=== PATIENT | male | born 1950 | race Caucasian/White ===

== ENCOUNTER 2022-03-11 01:18 | Outpatient (CLI) | payer MEDICARE, SELFPAY ==
[2022-03-11 12:25] LABS: HCT 45.1 % (40.0-50.0); HGB 14.7 g/dL (13.5-17.5); MCH 29.3 pg (27.0-33.0); MCHC 32.6 % (32.0-36.0); MCV 90 fL (80-95); MPV 10.3 fL (8.0-11.0); Platelet Count 275 10^3/uL (130-400); RBC 5.02 10^6/uL (4.36-5.78); RDW-SD 42.4 fL; WBC 9.14 10^3/uL (4.4-10.8)
[2022-03-11 12:44] LABS: CREATININE 1.1 mg/dL (0.70-1.30); Calculated LDL 132 mg/dL (<100); Cholesterol 229 mg/dL (<200); Estimated GFR 71.32 (mL/min/1.73m2); HDL Cholesterol 38 mg/dL (40-60); Potassium 3.5 mmol/L (3.5-5.1); TSH (W/Ref FT4) 4.66 uIU/mL (0.36-3.74); Triglyceride 297 mg/dL (<150)
[2022-03-11 13:04] LABS: FREE T4 0.93 ng/dL (0.76-1.46)
[2022-03-11 22:35] LABS: PSA, Screening 2.8 ng/mL (<=6.5)
[2022-03-14 12:56] LABS: Lyme Ab w Rflx to Lyme Confirm Equivocal (Negative)
[2022-03-14 14:39] LABS: Lyme IgG Ab Negative (Negative); Lyme IgM Ab Negative (Negative)
[2022-03-14 23:31] LABS: Anaplasma phagocytophilum Negative (Negative); B. miyamotoi PCR Negative (Negative); Babesia divergens/MO-1 Negative (Negative); Babesia duncani Negative (Negative); Babesia microti Negative (Negative); Ehrlichia chaffeensis Negative (Negative); Ehrlichia ewingii/canis Negative (Negative); Ehrlichia muris eauclairensis Negative (Negative)
== END 2022-03-11 01:19 | disposition home or self-care (01) ==
LOC: LOS 01:18
PROVIDERS: PCP Nurse Practitioner Family; Visit Provider Nurse Practitioner Family
DX: I10 Essential (primary) hypertension (principal); R53.83 Other fatigue; I63.9 Cerebral infarction, unspecified; R35.0 Frequency of micturition
CPT/HCPCS: 36415; 80061; 84153; 85027; 86617; 87798; 82565; 84132; 84439; 84443; 86618

== ENCOUNTER 2022-06-21 23:17 | Inpatient (IN) | payer MEDICARE, SELFPAY ==
--- NOTE | 2022-06-21 23:15 | RT.EKG_ITS ---
APPROVED REPORT Exam: Resting ECG Reason for Exam: weakness Patient Location: E HR:98 bpm ECG Measurements Heart Rate 98 AXIS PA 166 P 48 QRSd 141 QRS -14 QT 378 T -27 QTc 483 Conclusion Sinus rhythm...normal P axis, V-rate 60- 99 Right bundle branch block...QRSd>120, terminal axis(90,270)
--- NOTE | 2022-06-21 23:15 | DI.CT_ITS ---
Exam(s) CT BRAIN NECK CTA EXAM: CT BRAIN NECK CTA CLINICAL HISTORY: ?cva, right sided weakness. TECHNIQUE: Imaging Protocol: Axial CT angiography was performed with multi-slice acquisition and mu lti-planar and/or 3D reconstructions. CONTRAST MATERIAL: Intravenous: Omnipaque 350 contrast volume:85 mL COMPARISON: CT HEAD WITHOUT CONTRAST from 09/03/2009 CT HEAD WITHOUT CONTRAST from 09/05/2009 FINDINGS: CT Head W/O and W: Ventricles and Extra axial spaces: Normal in size and morphology for the patient's age. Hemorrhage: None. Cerebral parenchyma: There is no evidence of an acute territorial infarct. There are areas of decrea sed attenuation in the white matter consistent with small vessel ischemic disease. There are lacunar infarct seen in the right basal ganglia. Midline shift: None. Brainstem/Cerebellum: Normal. Calvarium: Normal. Visualized Paranasal sinuses/Mastoids: Clear. Soft Tissues: Unremarkable. Enhancement: Unremarkable. CTA Neck W: Common Carotid: Right: No dissection, occlusion or significant stenosis. Mild atherosclerosis. Left: No dissection, occlusion or significant stenosis. External Carotid: Right: No occlusion or significant stenosis. Left: No occlusion or significant stenosis. Internal Carotid: Right: No dissection, occlusion or significant stenosis. Atherosclerosis at the origin. Left: No dissection or occlusion. There is approximately 50 percent stenosis at the origin of the l eft internal carotid artery secondary to calcified and noncalcified plaque. Atherosclerosis at the o rigin. Vertebral Artery: Right: No dissection, occlusion or significant stenosis. Left: No dissection, occlusion or significant stenosis. Lung Apices: Normal. Bones: Within normal limits for the patient's age. Soft Tissues: Normal. Thyroid gland: Unremarkable. CTA Brain W: Internal Carotid Arteries: Atherosclerosis bilaterally. Mild narrowing of the left internal carotid artery. No aneurysm, occlusion or significant stenosis. Anterior Cerebral Arteries: Right: No aneurysm, occlusion or significant stenosis. Left: No aneurysm, occlusion or significant stenosis. Middle Cerebral Arteries: Right: No aneurysm, occlusion or significant stenosis. Left: No aneurysm, occlusion or significant stenosis. Posterior Cerebral Arteries: Right: No aneurysm, occlusion or significant stenosis. There is a origin of the right posterio r cerebral artery. Left: No aneurysm, occlusion or significant stenosis. Vertebral Arteries: Right: No aneurysm or occlusion. Dmio-mt-olksskhy stenosis of the right distal vertebral artery by calcified and noncalcified plaque. Left: The left vertebral artery in at the PICA. Basilar Artery: No aneurysm, occlusion or significant stenosis. IMPRESSION: 1. No significant large vessel stenosis or occlusion on the CT angiography of the head. 2. No acute intracranial process. 3. Approximately 50 percent stenosis at the origin of the left internal carotid artery due to plaque. RADIATION DOSE DELIVERED: 2,301.86mGy.cm Total DLP DATA REPOSITORY: All CT scans at this facility are submitted to the National Radiology Data Registry (NRDR) Dose Index Registry (DIR) with the [employer] (ACR). RADIATION OPTIMIZATION: All CT scans at this facility use at least one of these dose optimization te chniques: automated exposure control; mA and/or kV adjustment per patient size (includes targeted exa ms where dose is matched to clinical indication); or iterative reconstruction.
[2022-06-21 23:22] VITALS: PULSE 108; RESP 19; O2SAT 96
[2022-06-21 23:23] VITALS: BP 198/111; PULSE 105; PULSE 107; RESP 14; RESP 18; TEMP 36.4; O2SAT 93; O2SAT 94
--- NOTE | 2022-06-21 23:28 | ED.GENADUL_ITS ---
Discharge Plan Disposition Patient Disposition: Admit to [facility] Discharge Details Clinical Impression: Right sided weakness Primary Care Provider: Jonathan Gonsalez ED Provider: Abraham Khan Home Meds and New Rx's Prescriptions: No Action sildenafil [Viagra] 50 mg tablet 50 mg PO DAILY PRN (Reason: sexual activity) Qty: 2 5RF Rx Instructions: administer 30 minutes to 4 hours before activity amlodipine 5 mg tablet 5 mg PO DAILY Qty: 90 4RF simvastatin 10 mg tablet 10 mg PO QHS Qty: 90 3RF Medical Decision Making 71 yo male with hx of htn, per chart review cva in 2009 but significant other and himself deny chronic deficits, comes in with his significant other with right sided weakness and slurred speech. He has had issues with fatigue and daytime sleepiness chronically per his significant other (not , been together over 20 years). She last saw him yesterday in his usual state of health. She arrived and found him at 7pm and he was having right leg weakness and arm weakness, and was having difficulty walking so she brought him here for an eval. Pt arrives with noticeable right lower face droop, can raise his eyebrow, right arm and leg weakness with decrease in sensation, nih of 9 on initial exam (see neuro exam for nih details). He is caox4 and states he woke up this morning with the right leg and arm feeling weak. He is noted to be hypertensive to 190 systolic on arrival. His exam and history are consistent with cva but has had symptoms for over 4.5 hours so not a lytic candidate, will proceed with ct/cta brain/neck, ekg/troponin, cbc, cmp. imaging without acute significant abnormalities, has 50% stenosis of left internal carotid artery and microvascular changes on brain ct. Pt stable, speech slightly improved still with weakness on the right side. Will discuss with hospitalist for further obs and mri for likely cva. Aspirin ordered Differential Diagnosis Differential Diagnosis: cva, electrolyte abnormality, anemia Imaging Data Radiologic Study: Attestation: I personally reviewed and interpreted this imaging study as follows: Imaging: CT Scan Radiologist's impression: PROCEDURE INFORMATION: Exam: CTA Head With Contrast, Arteriography Exam date and time: 06/21/2022 11:37 PM Age: 71 years old Clinical indication: Stroke-like symptoms; Speech disturbance; Other: Righy weakness; Additional info: ? CVA, right sided weakness TECHNIQUE: Imaging protocol: Computed tomographic angiography of the head with contrast. Exam focused on the arteries. 3D rendering (Not supervised by radiologist): MIP and/or 3D reconstructed images were created by the technologist. Radiation optimization: All CT scans at this facility use at least one of these dose optimization techniques: automated exposure control; mA and/or kV adjustment per patient size (includes targeted exams where dose is matched to clinical indication); or iterative reconstruction. Contrast material: OMNIPAQUE 350; Contrast volume: 85 ml; Contrast route: INTRAVENOUS (IV); COMPARISON: MRI - BRAIN W/WO CONTRAST 11/30/2016 3:22 PM FINDINGS: ANTERIOR CIRCULATION: Right internal carotid artery: Intracranial segment is patent with no significant stenosis. No aneurysm. Right middle cerebral artery: No occlusion or significant stenosis. No aneurysm. Right anterior cerebral artery: No occlusion or significant stenosis. No aneurysm. Left internal carotid artery: Intracranial segment is patent with no significant stenosis. No aneurysm. Left middle cerebral artery: No occlusion or significant stenosis. No aneurysm.Left anterior cerebral artery: No occlusion or significant stenosis. No aneurysm. POSTERIOR CIRCULATION: Right vertebral artery: Mild to moderate stenosis of right vertebral artery by calcified/noncalcified plaque. Left vertebral artery: Left vertebral artery ends in PICA. Basilar artery: No occlusion or significant stenosis. No aneurysm. Right posterior cerebral artery: origin of the right posterior cerebral artery. Left posterior cerebral artery: No occlusion or significant stenosis. No aneurysm. Brain: There are moderate periventricular and subcortical lucencies consistent with chronic microvascular ischemic changes. Cerebral ventricles: No ventriculomegaly. Bones/joints: Unremarkable. No acute fracture. Soft tissues: Unremarkable. IMPRESSION: No significant stenosis or occlusion of intracranial arteries. PROCEDURE INFORMATION: Exam: CTA Neck With Contrast Exam date and time: 06/21/2022 11:37 PM Age: 71 years old Clinical indication: Stroke-like symptoms; Speech disturbance; Other: Righy weakness; Additional info: ? CVA, right sided weakness TECHNIQUE: Imaging protocol: Compu ousmane tomographic angiography of the neck with contrast. 3D rendering (Not supervised by radiologist): MIP and/or 3D reconstructed images were created by the technologist. Radiation optimization: All CT scans at this facility use at least one of these dose optimization techniques: automated exposure control; mA and/or kV adjustment per patient size (includes targeted exams where dose is matched to clinical indication); or iterative reconstruction. Contrast material: OMNIPAQUE 350; Contrast volume: 85 ml; Contrast route: INTRAVENOUS (IV); COMPARISON: MRI - BRAIN W/WO CONTRAST 11/30/2016 3:22 PM FINDINGS: Right common carotid artery: No stenosis. No dissection or occlusion. Right internal carotid artery: No stenosis of the extracranial segment. No dissection or occlusion. Right external carotid artery: No occlusion or stenosis of the origin.Left common carotid artery: No stenosis. No dissection or occlusion. Left internal carotid artery: There is approximately 50% stenosis of left internal carotid artery with calcified/noncalcified plaque. Left external carotid artery: No occlusion or stenosis of the origin. Right vertebral artery: No stenosis. No dissection or occlusion. Left vertebral artery: No stenosis. No dissection or occlusion. Soft tissues: Normal. No significant soft tissue swelling. Bones/joints: No acute fracture. IMPRESSION: 1. Right: No significant stenosis or occlusion of right internal carotid artery and vertebral artery. 2. Left: Approximately 50% stenosis of left internal carotid artery with calcified/noncalcified plaque. Vertebral artery is patent. REFERENCES: NASCET CRITERIA. The degree of stenosis in the cervical segment of the internal carotid artery is based on NASCET criteria. Normal is no stenosis. Mild is less than 50% stenosis. Moderate is 50- 69% stenosis. Severe is 70% to 99% stenosis. Total occlusion is no detectable patent lumen Radiologic Study #2: Attestation: I personally reviewed and interpreted this imaging study as follows: Imaging: X-Ray Radiologist's impression: no acute findings cxr Lab Data Lab results reviewed: Yes I reviewed the patient's lab results. ECG Data Attestation: I personally reviewed and interpreted this ECG (s) as follows: Prior ECG tracings: not available for review Interpretation: sinus rhythm, rate of 98, pr 166, rbbb, no stemi 2nd ekg sinus tachycardia, rate 103, rbbb, no stemi HPI General Mode of arrival: wheelchair . Date/Time Provider Initiated Documentation: 06/21/22 23:17 . Information obtained by: patient and family . History of Present Illness 71 year old M presents to the emergency department with the chief complaint of right sided weakness, described as moderate, Patient started experiencing this hour(s) (14) and it has been constant. No relieving factors improve symptom(s), No exacerbating factors reported . Patient notes denies chest pain and fever/chills. Patient did receive the following treatments prior to arrival, none Related Data Home Medications Medication Instructions Recorded Confirmed sildenafil 50 mg tablet (Viagra) 50 mg PO DAILY PRN sexual activity 12/07/20 06/21/22 #2 tabs amlodipine 5 mg tablet 5 mg PO DAILY #90 tab-caps 02/24/22 06/21/22 simvastatin 10 mg tablet 10 mg PO QHS #90 tabs 04/14/22 06/21/22 Previous Rx's Medication Instructions Recorded sildenafil 50 mg tablet (Viagra) 50 mg PO DAILY PRN sexual activity 12/07/20 #2 tabs amlodipine 5 mg tablet 5 mg PO DAILY #90 tab-caps 02/24/22 simvastatin 10 mg tablet 10 mg PO QHS #90 tabs 04/14/22 Allergies Allergy/AdvReac Type Severity Reaction Status Date / Time No Known Allergies Allergy Verified 06/21/22 23:32 Review of Systems All systems reviewed & are unremarkable except as noted in HPI and below Constitutional Constitutional: Denies chills and Denies fever(s) Cardiovascular Cardiovascular: Denies chest pain and Denies dyspnea Respiratory Respiratory: Denies cough and Denies dyspnea Gastrointestinal Gastrointestinal: Denies abdominal pain, Denies nausea and Denies vomiting Genitourinary Genitourinary: Denies dysuria Musculoskeletal Musculoskeletal: Denies joint swelling Integumentary/Breasts Skin/Breast: Denies rash PFSH All Active Problems (Updated 06/22/22 @ 00:37 by Abraham Khan MD) Right sided weakness (Acute) Elevated TSH (Acute) Daytime sleepiness (Acute) Low back pain (Chronic) Diarrhea (Acute) Urinary frequency (Acute) Fatigue (Chronic) Hypertension (Chronic) Numbness of left foot (Acute) Medical History (Updated 06/22/22 @ 00:37 by Abraham Khan MD) CVA (cerebral vascular accident) 2009 Social History (Updated 02/25/22 @ 15:06 by Trudi Villasenor) Smoking/Tobacco Use Status: Former Tobacco Use tobacco type: cigarettes Quit Date: 02/20/79 Second Hand Exposure: No Smoking risk assessment performed?: Yes Alcohol Intake: never Drug use: Never Substance use type: does not use Household members: significant other Housing: house Communication Needs: Hard of Hearing Do you need help understanding health information?: Often Pets and animals: Yes Pets and animals: cat(s) Sexually active: No Do you think of yourself as: straight/heterosexual Current gender identity: male What is your relationship status?: living with partner How often do you talk on the phone with friends or family?: decline to answer How often do you get together with friends or relatives?: decline to answer How often do you attend religion or restorationism services?: decline to answer Do you belong to any clubs or organized social groups?: decline to answer Panel score (0-1 are the most socially isolated patients): 1 What type of physical activity do you participate in: walking Duration: < 15 minutes/day Frequency: daily Brielle/Catholic: No preference Special brielle needs: No Seatbelt use: sometimes Helmet use: Yes Helmet use: always Drive intox or ride w/intox driver supervisor: No Exam Const Orientation: alert HENMT Head: normal to inspection Ears: external ears normal General nose exam: external nose normal Mouth: moist mucous membranes Eyes General: appearance normal, both eyes and all related structures Neck Neck: normal visual inspection Resp Effort & Inspection: normal respiratory effort Auscultation: clear to auscultation bilaterally Cardio Jugular venous pressure: no JVD Rate: regular rate Heart Sounds: no murmurs Skin General skin exam: no rashes or lesions noted Neuro General: patient alert and patient oriented x3 Other: NIH Stroke Scale/Score (NIHSS) from [employer] on 06/21/2022 All calculations should be rechecked by clinician prior to use RESULT SUMMARY: 9 points NIH Stroke Scale INPUTS: 1A: Level of consciousness ?> 0 = Alert; keenly responsive 1B: Ask month and age ?> 0 = Both questions right 1C: 'Blink eyes' & 'squeeze hands' ?> 0 = Performs both tasks 2: Horizontal extraocular movements ?> 0 = Normal 3: Visual florez ?> 0 = No visual loss 4: Facial palsy ?> 2 = Partial paralysis (lower face) 5A: Left arm motor drift ?> 0 = No drift for 10 seconds 5B: Right arm motor drift ?> 0 = No drift for 10 seconds 6A: Left leg motor drift ?> 0 = No drift for 5 seconds 6B: Right leg motor drift ?> 2 = Drift, hits bed 7: Limb Ataxia ?> 2 = Ataxia in 2 Limbs 8: Sensation ?> 1 = Mild-moderate loss: less sharp/more dull 9: Language/aphasia ?> 1 = Mild-moderate aphasia: some obvious changes, without significant limitation 10: Dysarthria ?> 1 = Mild-moderate dysarthria: slurring but can be understood 11: Extinction/inattention ?> 0 = No abnormality Extrem General: normal to inspection
[2022-06-21 23:30] VITALS: PULSE 104; RESP 15; O2SAT 93
--- NOTE | 2022-06-21 23:30 | DI.RAD_ITS ---
Exam(s) XR CHEST 1V IN DI DEPT EXAM: XR CHEST 1V IN DI DEPT CLINICAL HISTORY: stroke TECHNIQUE: 2D digital imaging was performed of the chest. One image was obtained. An AP view was ob tained. COMPARISON: No exams were available for comparison FINDINGS: MEDIASTINUM: Normal. HEART: Normal. PULMONARY VASCULATURE: Normal. LUNGS: Clear. PLEURAL SPACE: No pleural effusion or pneumothorax. BONE:Within normal limits for the patient's age. OTHER FINDINGS:Normal. IMPRESSION: No acute pulmonary findings. DATA REPOSITORY: RADIATION DOSE DELIVERED:
[2022-06-21 23:31] VITALS: BP 173/102; PULSE 104; PULSE 105; RESP 16; O2SAT 93
[2022-06-21] MEDS: Normal Saline Flush 10 ML SYR IVP (23:34)
[2022-06-21 23:39] LABS: Abs Immature Grans 0.04 10^3/uL (0.0-0.06); Absolute Basophil Count 0.05 10^3/uL (0.0-0.2); Absolute Eosinophil Count 0.12 10^3/uL (0.0-0.7); Absolute Lymphocyte Count 1.69 10^3/uL (1.2-3.4); Absolute Monocyte Count 0.57 10^3/uL (0.1-0.8); Absolute Neutrophil Count 5.26 10^3/uL (1.2-6.7); Basophils % 0.6; Eosinophils % 1.6; HCT 47.2 % (40.0-50.0); HGB 15.9 g/dL (13.5-17.5); Immature Grans % 0.5; Lymphocytes % 21.9; MCH 29.6 pg (27.0-33.0); MCHC 33.7 % (32.0-36.0); MCV 88 fL (80-95); MPV 9.5 fL (8.0-11.0); Monocytes % 7.4; Platelet Count 298 10^3/uL (130-400); RBC 5.37 10^6/uL (4.36-5.78); RDW-SD 41.8 fL; WBC 7.73 10^3/uL (4.4-10.8)
[2022-06-21] MEDS: Omnipaque 350 MG/ML 100 ML BTL IJ (23:40)
[2022-06-21] MEDS: Normal Saline - Diluent 50 ML VIAL IJ (23:42)
[2022-06-21 23:58] VITALS: BP 183/97; PULSE 98; RESP 19; O2SAT 93
[2022-06-21 23:59] VITALS: PULSE 98; RESP 18; O2SAT 93
[2022-06-22] VITALS (30 sets, daily range): BP systolic 147–198; BP diastolic 80–140; PULSE 88–112; RESP 13–21; TEMP 36.9–37.6; O2SAT 91–96
[2022-06-22 00:03] LABS: ALT 32 U/L (16-63); AST 21 U/L (15-37); Albumin 3.7 g/dL (3.4-5.0); Alkaline Phosphatase 108 U/L (46-116); BUN 11 mg/dL (7-18); Bilirubin, Total 0.8 mg/dL (0.2-1.0); CREATININE 1.2 mg/dL (0.70-1.30); Chloride 105 mmol/L (98-107); Estimated GFR 64.25 (mL/min/1.73m2); Glucose 327 mg/dL (74-106); Magnesium 2.1 mg/dL (1.8-2.4); Potassium 3.7 mmol/L (3.5-5.1); Sodium 142 mmol/L (136-145); TSH (W/Ref FT4) 6.86 uIU/mL (0.36-3.74); Total Protein 8.4 g/dL (6.4-8.2); Troponin I < 50 ng/L (<or=60)
[2022-06-22 00:06] LABS: INR 0.9 (0.9-1.1); PTT Activated 26.1 sec (21.5-31.9); Prothrombin Time 9.6 sec (9.3-11.0)
--- NOTE | 2022-06-22 00:19 | DI.VRAD_ITS ---
PROCEDURE INFORMATION: Exam: CTA Head With Contrast, Arteriography Exam date and time: 06/21/2022 11:37 PM Age: 71 years old Clinical indication: Stroke-like symptoms; Speech disturbance; Other: Righy weakness; Additional info: ? CVA, right sided weakness TECHNIQUE: Imaging protocol: Computed tomographic angiography of the head with contrast. Exam focused on the arteries. 3D rendering (Not supervised by radiologist): MIP and/or 3D reconstructed images were created by the technologist. Radiation optimization: All CT scans at this facility use at least one of these dose optimization techniques: automated exposure control; mA and/or kV adjustment per patient size (includes targeted exams where dose is matched to clinical indication); or iterative reconstruction. Contrast material: OMNIPAQUE 350; Contrast volume: 85 ml; Contrast route: INTRAVENOUS (IV); COMPARISON: MRI - BRAIN W/WO CONTRAST 11/30/2016 3:22 PM FINDINGS: ANTERIOR CIRCULATION: Right internal carotid artery: Intracranial segment is patent with no significant stenosis. No aneurysm. Right middle cerebral artery: No occlusion or significant stenosis. No aneurysm. Right anterior cerebral artery: No occlusion or significant stenosis. No aneurysm. Left internal carotid artery: Intracranial segment is patent with no significant stenosis. No aneurysm. Left middle cerebral artery: No occlusion or significant stenosis. No aneurysm. Left anterior cerebral artery: No occlusion or significant stenosis. No aneurysm. POSTERIOR CIRCULATION: Right vertebral artery: Mild to moderate stenosis of right vertebral artery by calcified/noncalcified plaque. Left vertebral artery: Left vertebral artery ends in PICA. Basilar artery: No occlusion or significant stenosis. No aneurysm. Right posterior cerebral artery: origin of the right posterior cerebral artery. Left posterior cerebral artery: No occlusion or significant stenosis. No aneurysm. Brain: There are moderate periventricular and subcortical lucencies consistent with chronic microvascular ischemic changes. Cerebral ventricles: No ventriculomegaly. Bones/joints: Unremarkable. No acute fracture. Soft tissues: Unremarkable. IMPRESSION: No significant stenosis or occlusion of intracranial arteries. PROCEDURE INFORMATION: Exam: CTA Neck With Contrast Exam date and time: 06/21/2022 11:37 PM Age: 71 years old Clinical indication: Stroke-like symptoms; Speech disturbance; Other: Righy weakness; Additional info: ? CVA, right sided weakness TECHNIQUE: Imaging protocol: Computed tomographic angiography of the neck with contrast. 3D rendering (Not supervised by radiologist): MIP and/or 3D reconstructed images were created by the technologist. Radiation optimization: All CT scans at this facility use at least one of these dose optimization techniques: automated exposure control; mA and/or kV adjustment per patient size (includes targeted exams where dose is matched to clinical indication); or iterative reconstruction. Contrast material: OMNIPAQUE 350; Contrast volume: 85 ml; Contrast route: INTRAVENOUS (IV); COMPARISON: MRI - BRAIN W/WO CONTRAST 11/30/2016 3:22 PM FINDINGS: Right common carotid artery: No stenosis. No dissection or occlusion. Right internal carotid artery: No stenosis of the extracranial segment. No dissection or occlusion. Right external carotid artery: No occlusion or stenosis of the origin. Left common carotid artery: No stenosis. No dissection or occlusion. Left internal carotid artery: There is approximately 50% stenosis of left internal carotid artery with calcified/noncalcified plaque. Left external carotid artery: No occlusion or stenosis of the origin. Right vertebral artery: No stenosis. No dissection or occlusion. Left vertebral artery: No stenosis. No dissection or occlusion. Soft tissues: Normal. No significant soft tissue swelling. Bones/joints: No acute fracture. IMPRESSION: 1. Right: No significant stenosis or occlusion of right internal carotid artery and vertebral artery. 2. Left: Approximately 50% stenosis of left internal carotid artery with calcified/noncalcified plaque. Vertebral artery is patent. REFERENCES: NASCET CRITERIA. The degree of stenosis in the cervical segment of the internal carotid artery is based on NASCET criteria. Normal is no stenosis. Mild is less than 50% stenosis. Moderate is 50-69% stenosis. Severe is 70% to 99% stenosis. Total occlusion is no detectable patent lumen. Dictated and Authenticated by: John Galarza MD. Ordering:MER Rosario MD
--- NOTE | 2022-06-22 00:19 | DI.VRAD_ITS ---
PROCEDURE INFORMATION: Exam: XR Chest Exam date and time: 06/21/2022 11:56 PM Age: 71 years old Clinical indication: Other: R sided weakness; Patient HX: CVA TECHNIQUE: Imaging protocol: Radiologic exam of the chest. Views: 1 view. COMPARISON: CT BRAIN NECK CTA 06/21/2022 11:37 PM FINDINGS: Lungs: Unremarkable. No consolidation. Pleural spaces: Unremarkable. No pleural effusion. No pneumothorax. Heart/Mediastinum: Cardiomegaly. Bones/joints: Unremarkable. IMPRESSION: No acute abnormality. Dictated and Authenticated by: John Galarza MD. Ordering:MER Rosario MD
[2022-06-22 00:20] LABS: ETHANOL BLOOD < 3.0 mg/dL (<10)
[2022-06-22 00:26] LABS: COVID-19 PCR Negative (Negative); Source Nasopharynx
[2022-06-22 00:34] LABS: FREE T4 0.95 ng/dL (0.76-1.46)
[2022-06-22] MEDS: Aspirin 325 MG TAB PO (00:59)
--- NOTE | 2022-06-22 01:15 | RT.EKG_ITS ---
APPROVED REPORT Exam: Resting ECG Reason for Exam: cva Patient Location: E HR:103 bpm ECG Measurements Heart Rate 103 AXIS UT 161 P 49 QRSd 136 QRS -5 QT 374 T -25 QTc 489 Conclusion Sinus tachycardia...rate> 99 Right bundle branch block...QRSd>120, terminal axis(90,270)
[2022-06-22 02:24] LABS: *AMPHETAMINES SCREEN URINE Negative (Negative); *BARBITURATES SCREEN URINE Negative (Negative); *BENZODIAZEPINES SCREEN URINE Negative (Negative); Cannabinoids THC Negative (Negative); Cocaine Screen,Urine Negative (Negative); METHADONE URINE SCREEN Negative (Negative); OPIATES URINE SCREEN Negative (Negative)
[2022-06-22 02:25] LABS: Tricyclic Antidepressants Negative (Negative)
[2022-06-22 02:27] LABS: Bilirubin Negative (Negative); Blood Moderate (Negative); Clarity Clear (Clear); Glucose >=1000 mg/dL (Negative); Ketones Trace mg/dL (Negative); Leukocyte Esterase Negative (Negative); Nitrite Negative (Negative); Urobilinogen 0.2 mg/dL (Up to 0.2); pH 5.5 (5-8)
[2022-06-22 02:38] LABS: Bacteria Rare HPF (Negative); C & S Indicated? No; Crystals Negative HPF (Negative); Epithelial Cells Rare HPF (Negative); Mucus Negative (Negative); WBC 0-2 HPF (0-5)
--- NOTE | 2022-06-22 04:46 | W.PM.HP.N ---
Date of service: 06/22/22 Time of Service: 04:48 Assessment and Plan Assessment and plan (1) CVA (cerebral vascular accident): Start date: 06/21/22 Assessment and plan: Patient presents with right-sided weakness and speech difficulty indicating a left middle cerebral artery distribution of ischemia and CTA revealing left carotid artery stenosis at 50% with MRI pending. Patient did have previous CVA symptoms with right facial and left foot numbness which did not persist and this occurred more than a decade ago in 2009. Patient has persistent symptoms and has symptoms more than 3 hours prior to presentation therefore did not get evaluated for lytic therapy. He is stable and on aspirin with high-dose statin with permissive hypertension. He will be admitted for further evaluation with echocardiogram and bubble study as well as MRI. PT and OT will evaluate patient and if neurology is available they will be consulted. He is a full code. Qualifiers: CVA mechanism: stenosis Precerebral and cerebral artery: middle cerebral artery Laterality of affected vessel: left Qualified Code(s): I63.512 - Cerebral infarction due to unspecified occlusion or stenosis of left middle cerebral artery (2) Right sided weakness: Start date: 06/21/22 Status: Acute Assessment and plan: Continue rehabilitation and further evaluation for left MCA distribution CVA. (3) Hypertension: Status: Chronic Assessment and plan: Patient was hypertensive upon admission and he will have permissive hypertension but initiated on low-dose metoprolol to control systolic at 180 and diastolic at 95. (4) Hyperlipidemia: Status: Chronic Assessment and plan: Patient was on moderate to low-dose statin therapy and this will be increased to high-dose statin therapy with atorvastatin 80 mg daily. He was given 1 dose now and then nightly. History of Present Illness History of Present Illness Chief Complaint: Right-sided weakness and speech slurred Narrative: This is a 71-year-old male patient who had a CVA in 2009 manifesting with numbness right face and left extremity without persistent deficits presenting to the ED the day of admission accompanied by his partner of 20 years with acute onset of right-sided weakness and slurred speech with the partner finding him around 7 PM the evening prior to admission with the patient being outside the window of lytic therapy. The ED physician documented that the symptoms were 4.5 hours out from onset upon presentation. The patient was hypertensive and chronically was on amlodipine and had no other complaints other than right facial droop with his right arm weakness and some speech difficulties. CTA of the brain and neck did reveal 50% stenosis of the left internal carotid artery with plaque with no intracranial arterial circulation occlusions of the large vessels. CT of the head was not performed with MRI planned. Patient was given a loading dose of aspirin and symptoms were stable at the time I saw him with persistence of deficits. He denied any headache. He denied any falls or recent bleeding episodes. He does need to have a swallow evaluation prior to being fed and this was ordered. Patient was admitted for further evaluation and rehabilitation. He did have persistent deficits consistent with a left middle cerebral artery circulation CVA with some facial involvement which may be some deeper circulation. He is a full code. Review of Systems Narrative: 13 point review of systems otherwise unrevealing or stable. PFSH All Active Problems (Updated 06/22/22 @ 05:34 by Tony Caldwell) Hyperlipidemia (Chronic) Right sided weakness (Acute) Elevated TSH (Acute) Daytime sleepiness (Acute) Low back pain (Chronic) Diarrhea (Acute) Urinary frequency (Acute) Fatigue (Chronic) Hypertension (Chronic) Numbness of left foot (Acute) Medical History CVA (cerebral vascular accident) 2009 Social History Smoking/Tobacco Use Status: Former Tobacco Use tobacco type: cigarettes Quit Date: 02/20/79 Second Hand Exposure: No Smoking risk assessment performed?: Yes Alcohol Intake: never Drug use: Never Substance use type: does not use Household members: significant other Housing: house Communication Needs: Hard of Hearing Do you need help understanding health information?: Often Pets and animals: Yes Pets and animals: cat(s) Sexually active: No Do you think of yourself as: straight/heterosexual Current gender identity: male What is your relationship status?: living with partner How often do you talk on the phone with friends or family?: decline to answer How often do you get together with friends or relatives?: decline to answer How often do you attend episcopalian or anglican services?: decline to answer Do you belong to any clubs or organized social groups?: decline to answer Panel score (0-1 are the most socially isolated patients): 1 What type of physical activity do you participate in: walking Duration: < 15 minutes/day Frequency: daily Brielle/Worship: No preference Special brielle needs: No Seatbelt use: sometimes Helmet use: Yes Helmet use: always Drive intox or ride w/intox inventory associate and driver: No Meds Allergies and Home Medications Allergies Allergy/AdvReac Type Severity Reaction Status Date / Time No Known Allergies Allergy Verified 06/21/22 23:32 Home Medications Medication Instructions Recorded Confirmed Type sildenafil 50 mg tablet (Viagra) 50 mg PO DAILY PRN sexual activity 12/07/20 06/21/22 Rx #2 tabs amlodipine 5 mg tablet 5 mg PO DAILY #90 tab-caps 02/24/22 06/21/22 Rx simvastatin 10 mg tablet 10 mg PO QHS #90 tabs 04/14/22 06/21/22 Rx Exam Narrative Exam Narrative: General: Patient appears appropriate for age, flattened affect with good eye contact with speech difficulty but in no acute distress, appears alert and oriented to person, place and time. He is clumsy with his right upper extremity and has a droop right face. HEENT: Normocephalic, eyes with pupils equal and react to light symmetrically, extraocular movement intact and sclera anicteric. Oropharynx with moist mucosa and fair dentition. Tongue protrudes deviated to the right. There is a right facial droop with the right corner of the mouth not rising with smiling. Neck: Supple without JVD and no auscultated bruits. Back: Normal posture, without CVA tenderness. Lungs: Clear to auscultation and percussion. Heart: Regular rate and rhythm with no murmurs or gallops appreciated. Abdomen: Obese contour, soft and nontender to palpation with no palpable hepatosplenomegaly. Bowel sounds positive in all quadrants. No guarding. Genitalia/rectal: Exam deferred. Skin: Normal color, warm and dry with no apparent rashes or bruising. Extremities: Without clubbing, cyanosis or pitting edema. Peripheral pulses grossly intact. Neuro: Cranial nerves II through XII gross intact, right facial droop and tongue protruding to the right as mentioned, right upper extremity 1 out of 5 strength with patient able to move against gravity only, right lower extremity with 3-4 out of 5 strength move against gravity and some resistance, left upper and lower extremity normal 5 out of 5 strength. No Babinski bilaterally. Psych: Normal affect and mood. No abnormal thought processes. Remote and recent memory grossly intact. Results Imaging Imaging Studies: Exam: CTA Head With Contrast, Arteriography Exam date and time: 06/21/2022 11:37 PM Age: 71 years old Clinical indication: Stroke-like symptoms; Speech disturbance; Other: Righy weakness; Additional info: ? CVA, right sided weakness TECHNIQUE: Imaging protocol: Computed tomographic angiography of the head with contrast. Exam focused on the arteries. 3D rendering (Not supervised by radiologist): MIP and/or 3D reconstructed images were created by the technologist. Radiation optimization: All CT scans at this facility use at least one of these dose optimization techniques: automated exposure control; mA and/or kV adjustment per patient size (includes targeted exams where dose is matched to clinical indication); or iterative reconstruction. Contrast material: OMNIPAQUE 350; Contrast volume: 85 ml; Contrast route: INTRAVENOUS (IV);? COMPARISON: MRI - BRAIN W/WO CONTRAST 11/30/2016 3:22 PM FINDINGS: ANTERIOR CIRCULATION: Right internal carotid artery: Intracranial segment is patent with no significant stenosis. No aneurysm. Right middle cerebral artery: No occlusion or significant stenosis. No aneurysm.? Right anterior cerebral artery: No occlusion or significant stenosis. No aneurysm.? Left internal carotid artery: Intracranial segment is patent with no significant stenosis. No aneurysm. Left middle cerebral artery: No occlusion or significant stenosis. No aneurysm. ? Left anterior cerebral artery: No occlusion or significant stenosis. No aneurysm.? POSTERIOR CIRCULATION: Right vertebral artery: Mild to moderate stenosis of right vertebral artery by calcified/noncalcified plaque. Left vertebral artery: Left vertebral artery ends in PICA. Basilar artery: No occlusion or significant stenosis. No aneurysm. Right posterior cerebral artery: origin of the right posterior cerebral artery. Left posterior cerebral artery: No occlusion or significant stenosis. No aneurysm.? Brain: There are moderate periventricular and subcortical lucencies consistent with chronic microvascular ischemic changes. Cerebral ventricles: No ventriculomegaly. Bones/joints: Unremarkable. No acute fracture. Soft tissues: Unremarkable. IMPRESSION: No significant stenosis or occlusion of intracranial arteries. PROCEDURE INFORMATION: Exam: CTA Neck With Contrast Exam date and time: 06/21/2022 11:37 PM Age: 71 years old Clinical indication: Stroke-like symptoms; Speech disturbance; Other: Righy weakness; Additional info: ? CVA, right sided weakness TECHNIQUE: Imaging protocol: Computed tomographic angiography of the neck with contrast. 3D rendering (Not supervised by radiologist): MIP and/or 3D reconstructed images were created by the technologist. Radiation optimization: All CT scans at this facility use at least one of these dose optimization techniques: automated exposure control; mA and/or kV adjustment per patient size (includes targeted exams where dose is matched to clinical indication); or iterative reconstruction. Contrast material: OMNIPAQUE 350; Contrast volume: 85 ml; Contrast route: INTRAVENOUS (IV);? COMPARISON: MRI - BRAIN W/WO CONTRAST 11/30/2016 3:22 PM FINDINGS: Right common carotid artery: No stenosis. No dissection or occlusion. Right internal carotid artery: No stenosis of the extracranial segment. No dissection or occlusion. Right external carotid artery: No occlusion or stenosis of the origin.? Left common carotid artery: No stenosis. No dissection or occlusion. Left internal carotid artery: There is approximately 50% stenosis of left internal carotid artery with calcified/noncalcified plaque. Left external carotid artery: No occlusion or stenosis of the origin.? Right vertebral artery: No stenosis. No dissection or occlusion. Left vertebral artery: No stenosis. No dissection or occlusion. Soft tissues: Normal. No significant soft tissue swelling. Bones/joints: No acute fracture. IMPRESSION: 1. ? Right: No significant stenosis or occlusion of right internal carotid artery and vertebral artery. 2. ? Left: Approximately 50% stenosis of left internal carotid artery with calcified/noncalcified plaque. Vertebral artery is patent. Exam: XR Chest Exam date and time: 06/21/2022 11:56 PM Age: 71 years old Clinical indication: Other: R sided weakness; Patient HX: CVA TECHNIQUE: Imaging protocol: Radiologic exam of the chest. Views: 1 view. COMPARISON: CT BRAIN NECK CTA 06/21/2022 11:37 PM FINDINGS: Lungs: Unremarkable. No consolidation. Pleural spaces: Unremarkable. No pleural effusion. No pneumothorax. Heart/Mediastinum: Cardiomegaly. Bones/joints: Unremarkable. IMPRESSION: No acute abnormality. Labs 06/21/22 23:27 05/02/23 23:27 Labs: Laboratory Results - last 24 hr 06/21/22 06/21/22 06/21/22 23:27 23:27 23:27 WBC 7.73 RBC 5.37 Hgb 15.9 Hct 47.2 MCV 88 MCH 29.6 MCHC 33.7 RDW 13.0 Plt Count 298 MPV 9.5 Immature Gran % 0.5 Neutrophils % 68.0 Lymphocytes % 21.9 Monocytes % 7.4 Eosinophils % 1.6 Basophils % 0.6 Nucleated RBC % 0.0 Absolute Neutrophils 5.26 Absolute Lymphocytes 1.69 Absolute Monocytes 0.57 Absolute Eosinophils 0.12 Absolute Basophils 0.05 PT 9.6 INR 0.9 APTT 26.1 Sodium 142 Potassium 3.7 Chloride 105 Carbon Dioxide 26.0 Anion Gap 11.0 BUN 11 Creatinine 1.2 Est GFR (CKD-EPI 2020) 64.25 Glucose 327 H Calcium 10.0 Magnesium 2.1 Total Bilirubin 0.8 AST 21 ALT 32 Alkaline Phosphatase 108 Troponin I < 50 Total Protein 8.4 H Albumin 3.7 TSH 6.86 H Free T4 0.95 Urine Color Urine Clarity Urine pH Ur Specific [place] Urine Protein Urine Ketones Urine Blood Urine Nitrite Urine Bilirubin Urine Urobilinogen Ur Leukocyte Esterase Urine RBC Urine WBC Ur Epithelial Cells Urine Crystals Urine Bacteria Urine Mucus Ur Culture Indicated? Urine Glucose Urine Opiates Screen Urine Methadone Screen Ur Barbiturates Screen Ur Tricyclics Screen Ur Amphetamines Screen U Benzodiazepines Scrn Urine Cocaine Screen Ur THC Screen Ethyl Alcohol COVID-19 Source SARS-CoV-2 (PCR) 06/21/22 06/21/22 06/22/22 23:27 23:29 01:50 WBC RBC Hgb Hct MCV MCH MCHC RDW Plt Count MPV Immature Gran % Neutrophils % Lymphocytes % Monocytes % Eosinophils % Basophils % Nucleated RBC % Absolute Neutrophils Absolute Lymphocytes Absolute Monocytes Absolute Eosinophils Absolute Basophils PT INR APTT Sodium Potassium Chloride Carbon Dioxide Anion Gap BUN Creatinine Est GFR (CKD-EPI 2020) Glucose Calcium Magnesium Total Bilirubin AST ALT Alkaline Phosphatase Troponin I Total Protein Albumin TSH Free T4 Urine Color Urine Clarity Urine pH Ur Specific [place] Urine Protein Urine Ketones Urine Blood Urine Nitrite Urine Bilirubin Urine Urobilinogen Ur Leukocyte Esterase Urine RBC Urine WBC Ur Epithelial Cells Urine Crystals Urine Bacteria Urine Mucus Ur Culture Indicated? Urine Glucose Urine Opiates Screen Negative Urine Methadone Screen Negative Ur Barbiturates Screen Negative Ur Tricyclics Screen Negative Ur Amphetamines Screen Negative U Benzodiazepines Scrn Negative Urine Cocaine Screen Negative Ur THC Screen Negative Ethyl Alcohol < 3.0 COVID-19 Source Nasopharynx SARS-CoV-2 (PCR) Negative 06/22/22 01:50 WBC RBC Hgb Hct MCV MCH MCHC RDW Plt Count MPV Immature Gran % Neutrophils % Lymphocytes % Monocytes % Eosinophils % Basophils % Nucleated RBC % Absolute Neutrophils Absolute Lymphocytes Absolute Monocytes Absolute Eosinophils Absolute Basophils PT INR APTT Sodium Potassium Chloride Carbon Dioxide Anion Gap BUN Creatinine Est GFR (CKD-EPI 2020) Glucose Calcium Magnesium Total Bilirubin AST ALT Alkaline Phosphatase Troponin I Total Protein Albumin TSH Free T4 Urine Color Yellow Urine Clarity Clear Urine pH 5.5 Ur Specific [place] 1.010 Urine Protein Negative Urine Ketones Trace H Urine Blood Moderate H Urine Nitrite Negative Urine Bilirubin Negative Urine Urobilinogen 0.2 Ur Leukocyte Esterase Negative Urine RBC 10-20 H Urine WBC 0-2 Ur Epithelial Cells Rare Urine Crystals Negative Urine Bacteria Rare Urine Mucus Negative Ur Culture Indicated? No Urine Glucose >=1000 H Urine Opiates Screen Urine Methadone Screen Ur Barbiturates Screen Ur Tricyclics Screen Ur Amphetamines Screen U Benzodiazepines Scrn Urine Cocaine Screen Ur THC Screen Ethyl Alcohol COVID-19 Source SARS-CoV-2 (PCR) Last Vital Signs Temp 37.2 C 06/22/22 02:34 Pulse 102 H 06/22/22 03:21 Resp 18 06/22/22 02:34 BP 150/100 H 06/22/22 03:21 Pulse Ox 95 06/22/22 02:34 Time Spent Time spent with Patient: >75 minutes Time was spent: preparing to see the patient(eg.review tests), obtaining and/or reviewing separately otained hiistory, ordering medications,tests, procedures, referring, communicating with other health transitions rn care coordinator, indepentently interpreting results, counseling the patient and care coordination
[2022-06-22 05:00] LABS: Troponin I < 50 ng/L (<or=60)
[2022-06-22] MEDS: Metoprolol 12.5 MG TAB PO ×4 (06:18→23:36)
[2022-06-22] MEDS: Atorvastatin 40 MG TAB 80 MG PO ×2 (06:18→20:24)
[2022-06-22 06:56] LABS: HCT 43.5 % (40.0-50.0); HGB 14.7 g/dL (13.5-17.5); MCH 30.3 pg (27.0-33.0); MCHC 33.8 % (32.0-36.0); MCV 90 fL (80-95); MPV 9.9 fL (8.0-11.0); Platelet Count 269 10^3/uL (130-400); RBC 4.85 10^6/uL (4.36-5.78); RDW 13.1 % (11.8-14.1); RDW-SD 42.8 fL; WBC 7.32 10^3/uL (4.4-10.8)
[2022-06-22 07:18] LABS: ALT 25 U/L (16-63); AST 20 U/L (15-37); Albumin 3.2 g/dL (3.4-5.0); Alkaline Phosphatase 97 U/L (46-116); BUN 11 mg/dL (7-18); Bilirubin, Total 0.7 mg/dL (0.2-1.0); Calcium 9.3 mg/dL (8.5-10.1); Chloride 109 mmol/L (98-107); Estimated GFR 79.97 (mL/min/1.73m2); Glucose 257 mg/dL (74-106); Potassium 3.3 mmol/L (3.5-5.1); Sodium 144 mmol/L (136-145); Total Protein 7.3 g/dL (6.4-8.2)
[2022-06-22] MEDS: Aspirin 81 MG CHEW PO (08:49)
--- NOTE | 2022-06-22 11:10 | DI.MRI_ITS ---
Exam(s) MR BRAIN WO EXAM: MR BRAIN WO CLINICAL HISTORY: Right hemiparesis with speech hestancy, acute TECHNIQUE: Multiplanar multisequence MRI of the brain was performed. COMPARISON: CT CT BRAIN NECK CTA from 06/21/2022 FINDINGS: VENTRICLES AND EXTRA AXIAL SPACES: Normal in size and morphology for the patient's age. MIDLINE SHIFT: None. CEREBRAL PARENCHYMA: There are areas of hyperintense signal in the white matter on the FLAIR and T2 w eighted images consistent with small vessel ischemic disease. There is an area of restricted diffusi on to the left of the midline in the sammie. This is consistent with a acute infarct. No space-occupy ing lesion identified. HEMORRHAGE: None. BRAINSTEM/CEREBELLUM: Please see above under cerebral parenchyma. CALVARIUM: Normal. VISUALIZED PARANASAL SINUSES/MASTOIDS:There is some fluid seen in the right mastoid air cells. The r emaining visualized paranasal sinuses and left mastoid air cells are clear. [place]: Normal flow void. PITUITARY GLAND: Unremarkable. OTHER FINDINGS: None. IMPRESSION: 1. Area of restricted diffusion to the left of midline in the sammie consistent with an acute infarct. 2. Age-related cerebral atrophy and small vessel ischemic disease. 3. Findings were discussed with the Emili Vanegas NP at 11:29 a.m. on 06/22/2022. DATA REPOSITORY:
[2022-06-22] MEDS: Potassium Chloride 20 MEQ TABCR PO (12:17)
--- NOTE | 2022-06-22 12:24 | INITIAL_ITS ---
- If Service Date Differs Date of service: 06/22/22 Time of Service: 12:24 Care Management Initial Assess REASON FOR HOSPITALIZATION:: CVA, HTN PAST MEDICAL HISTORY/PAST SURGICAL HISTORY:: All Active Problems. Hyperlipidemia (Chronic). Right sided weakness (Acute). Elevated TSH (Acute). Daytime sleepiness (Acute). Low back pain (Chronic). Diarrhea (Acute). Urinary frequency (Acute). Fatigue (Chronic). Hypertension (Chronic). Numbness of left foot (Acute). Medical History. CVA (cerebral vascular accident). 2009 PREVIOUS FUNCTIONAL STATUS/SOCIAL/FAMILY SUPPORTS:: Bennett lives in [place] with his S/O, Larissa. 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 He is independent at baseline. CURRENT FUNCTIONAL STATUS:: CM was unable to meet with Bennett today due to his many consults which kept him busy all day. Per MD, he may benefit from an acute rehab such as [facility] or [facility]. CM will discuss this with Bennett and will send the referral, if he is agreeable to this plan. CM will continue to follow. ADVANCE DIRECTIVES:: Not on file, CM will offer forms. Has patient been provided with info about the portal/API?: Yes Did the patient sign up for the portal?: No CODE STATUS:: Full Code INSURANCE COVERAGE / FINANCIAL ISSUES:: [facility] MCR replacement CURRENT HOME/COMMUNITY SERVICES/EQUIPMENT:: None. PRIMARY CARE PHYSICIAN:: Jonathan Gonsalez POTENTIAL DISCHARGE NEEDS:: Evaluations for further needs, possible acute rehab, follow up appointments. PATIENT/FAMILY EDUCATION NEEDS:: Review discharge instructions and limitations, discussion of self care needs including ask me three. ANTICIPATED BARRIERS TO DISCHARGE:: None identified. TRANSPORTATION:: Dependent on disposition PLAN:: Bennett may benefit from acute rehab, which CM will discuss with him. He will likely transport via EMS. He will follow up with his PCP and discharge plan of care. CM will continue to follow.
[2022-06-22 13:13] LABS: Lab Add On Test DONE
[2022-06-22] MEDS: Clopidogrel 75 MG TAB PO (13:38)
[2022-06-22 14:55] LABS: Hemoglobin A1C 9.2 % (<5.7)
--- NOTE | 2022-06-22 16:20 | W.NEUROCONSU ---
Date of service: 06/22/22 Time of Service: 16:20 Assessment and Plan Assessment and plan (1) Right sided weakness: Status: Acute (2) Acute stroke due to ischemia: Status: Acute (3) Dysarthria: Status: Acute (4) Dysphagia: Status: Acute Assessment and plan: Mr. Nuno has a history of HTN, HLD, prior stroke x2, and very little medical care over the years admitted with an acute L medial pontine ischemic stroke manifested by right hemiparesis, dysarthria, and dysphagia, secondary to small vessel disease. Work-up: -Telemetry -A1c -Lipid panel Medications: -aspirin 81mg daily for secondary stroke prevention indefinitely -clopidogrel 75mg daily for secondary stroke prevention x 30 days -atrovastatin 80mg daily for secondary stroke prevention; titrate at d/c for goal LDL <70 Other: -Allow permissive hypertension -Physical therapy for leg weakness, gait training -Occupation therapy for upper extremity weakness, activities of daily living -Speech therapy for speech and swallow -close neuro checks with transition to heparin drip s/p repeat stat negative CTH for any worsening symtpoms given nature of pontine strokes to evolve As an outpatient, will plan to explore potential cognitive issues. Would not expect this stroke to have caused new cognitive issues. Discussed recommendation for inpatient rehab should he qualify. He should follow-up in neurology clinic afer d/c. History of Present Illness History of Present Illness Chief Complaint: stroke Narrative: Handedness: right. Mr. Nuno is a 71 year-old with hypertension, hyperlipidemia, prior strokes, and very little medical care throughout the years. On Monday06/19/22 he had been doing a lot of physical activity during the day which flared his low back pain, radiating into his right leg. By dinner time, he started feeling unwell like he had the flu. The next day, Monday06/20/22, he was unable to get up/down the stairs without help due to difficulty with the right leg - they attributed the difficulty due to the flare of back pain the day prior. He continues to feel unwell like he might have or be developing the flu. By 06/21/22, he started notcing some clumsiness of the right hand and slurring of speech that significantly worsened as the day went on. And during which it became obvious his right leg was quite weak. He presented to the [facility] ER 06/21/22 evening. He was not a tPA candidate as he is outside of the time window. SBP 190s. He is not on an antiplatelet medication at baseline. He was recently started on simvastatin 10mg daily along with a BP medication after several years of minimal medical care. He has been started on DAPT and switched to atorvastatin 80mg since being here. Since this am, he reports no further progression of symptoms but is left with pretty dense R arm>leg>face weakness and moderate-severe dysarthria. He has undergone the work-up as below. He had a stroke in 2009 manifested by vertigo and face weakness. MRI showed an acute infart in the right inferior cerebellar peduncle. He had another stroke in 2017 that was worked up outpatient - manifested by right hemiparesis. MRI brain showed a L medial pontine stroke as well as a small mass. He was referred [facility] [place] [facility] never went to either/followed-up. He fully recovered from both of those strokes. Odd interaction noted when I asked who is his visit in the room was - Larissa his long time SO. 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 Work-up: -CTH (06/21/22): No acute findings. Atrophy and small vessel disease changes. I reviewed these images personally and this is my personal interpretation. -CTA head/neck (06/21/22): very small L vertebral artery, occluded distally??? ~50% L ICA/CC stenosis at the bifurcation. I reviewed these images personally and this is my personal interpretation. -MRI brain w/o (06/22/22): acute L medial pontine stroke. Prior R frontal lacunar infarct. Chronic vascular changes and atrophy noted. I reviewed these images personally and this is my personal interpretation. -TTE (06/22/22): EF 55%. Unable to assess for wall motion abnormalities due to technically limited images. LA normal. Bubble not done. -Labs: TSH 6.86, FT$ 0.95, trop x 2 neg; UDS/ETOH neg Review of Systems All systems reviewed & are unremarkable except as noted in HPI and below PFSH All Active Problems (Updated 06/22/22 @ 23:34 by Hoa Johnson MD) Dysphagia (Acute) Dysarthria (Acute) Acute stroke due to ischemia (Acute) Hyperlipidemia (Chronic) Right sided weakness (Acute) Elevated TSH (Acute) Daytime sleepiness (Acute) Low back pain (Chronic) Diarrhea (Acute) Urinary frequency (Acute) Fatigue (Chronic) Hypertension (Chronic) Numbness of left foot (Acute) Medical History CVA (cerebral vascular accident) 2009 Social History Smoking/Tobacco Use Status: Former Tobacco Use tobacco type: cigarettes Quit Date: 02/20/79 Second Hand Exposure: No Smoking risk assessment performed?: Yes Alcohol Intake: never Drug use: Never Substance use type: does not use Household members: significant other Housing: house Communication Needs: Hard of Hearing Do you need help understanding health information?: Often Pets and animals: Yes Pets and animals: cat(s) Sexually active: No Do you think of yourself as: straight/heterosexual Current gender identity: male What is your relationship status?: living with partner How often do you talk on the phone with friends or family?: decline to answer How often do you get together with friends or relatives?: decline to answer How often do you attend baptist or adventist services?: decline to answer Do you belong to any clubs or organized social groups?: decline to answer Panel score (0-1 are the most socially isolated patients): 1 What type of physical activity do you participate in: walking Duration: < 15 minutes/day Frequency: daily Brielle/Restorationist: No preference Special brielle needs: No Seatbelt use: sometimes Helmet use: Yes Helmet use: always Drive intox or ride w/intox pickup driver: No Visit Medication and Allergies Active Medications Generic Name Dose Route Start Last Admin Trade Name Freq PRN Reason Stop Dose Admin Acetaminophen 0 mg 06/22/22 04:49 Acetaminophen 325 Mg Tab PO Q4H PRN PRN Al Hydrox/Mg Hydrox/Simethicone 30 ml 06/22/22 04:49 Mylanta Suspension 30 Ml Cup PO Q2H PRN PRN Aspirin 81 mg 06/22/22 08:30 06/22/22 08:49 Aspirin 81 Mg Chew PO 81 mg DAILY [facility]OR Administration Atorvastatin Calcium 80 mg 06/22/22 20:00 Atorvastatin 40 Mg Tab PO QPM [facility] Clopidogrel Bisulfate 75 mg 06/23/22 08:30 Clopidogrel 75 Mg Tab PO DAILY [facility] Dimethicone/Zinc Oxide 0 gm 06/22/22 04:49 Donte Protect Cream 142 Gm Tube TP PRN PRN Docusate Sodium 100 mg 06/22/22 04:49 Docusate Sodium 100 Mg Cap PO TID PRN PRN IV Miscellaneous Supplies 1 each 06/21/22 23:30 Iv Access IV DIRECTED [facility] IV Miscellaneous Supplies 1 each 06/22/22 01:00 Iv Access-Emergency Dept IV DIRECTED [facility] Iohexol 100 ml 06/21/22 23:45 06/21/22 23:40 Omnipaque 350 Mg/Ml 100 Ml Btl IJ 07/21/22 23:59 85 ml DIRECTED [facility] Administration Magnesium Hydroxide 30 ml 06/22/22 04:49 Milk Of Magnesia 30 Ml Cup PO DAILY PRN PRN Metoprolol Tartrate 12.5 mg 06/22/22 06:00 06/22/22 11:58 Metoprolol 12.5 Mg Tab PO 12.5 mg Q6H [facility] Administration Polyethylene Glycol 17 gm 06/22/22 04:49 Polyethylene Glycol 3350 17 Gm Packet PO DAILY PRN PRN Constipation Sodium Chloride 0 ml 06/21/22 23:24 06/21/22 23:34 Normal Saline Flush 10 Ml Syr IVP 10 ml PRN PRN Administration Sodium Chloride 50 ml 06/21/22 23:45 06/21/22 23:42 Normal Saline - Diluent 50 Ml Vial IJ 50 ml .FOR DI USE [facility]OR Administration Sodium Chloride 0 ml 06/22/22 01:00 Normal Saline Flush 10 Ml Syr IVP PRN PRN Allergies No Known Allergies Allergy (Verified 06/21/22 23:32) Exam Narrative Exam Narrative: Physical Exam: Gen: Patient of apparent stated age, NAD Head and face: no facial or cranial abnormalities Neck: Supple, no meningismus, no occipital tenderness CV: + S1, S2, RRR, no murmur Resp: CTA B/L Abd: soft, nontender, nondistended Ext: No edema. No clubbing or cyanosis. No bony deformity. Neuro Exam: Language: fluency, naming, repetition, and comprehension intact; Mental Status: AAO, current events and fund of knowledge intact; bizarre interaction with him when asking who was in the room with him (his SO x decades); couldn't tell me her name or how he knew her Speech: moderate-severe dysarthria Cranial nerves: Funduscopy: not performed CN II: visual florez intact CN III, IV, : extraocular movements intact, no nystagmus, pupils symmetric and reactive to light CN V: face sensation intact to LT and PP CN VII: Right lower face weakness, mild CN VIII: hearing intact bilaterally CN IX, X: palate rises symmetrically CN XI: trapezius/SCM 5/5 bilaterally CN XII: protrudes tongue symmetrically Sensory: intact to LT, PP in all extremities Motor: bulk and tone intact. Fine motor movements intact on L with no L pronator drift. Strength 5/5 throughout L hemibody. 3+/5 R hip flexor and ankle dorsiflexion/plantarflexion. Flaccid weakness of RUE with 1+/5 movement detected in the R deltoid and R biceps; finger flexion. Nothing in triceps, wrist extension, grasp. Reflexes: hyporeflexic throughout; R Babinski Coordination: no ataxia Gait: 3 assist to pivot from chair to bed; unable to ambulate at this time Results Last Vital Signs Temp 98.4 F 06/22/22 15:14 Pulse 95 H 06/22/22 15:14 Resp 18 06/22/22 15:14 BP 198/106 H 06/22/22 15:14 Pulse Ox 95 06/22/22 15:14 Labs 06/22/22 06:15 06/22/22 06:15 Labs: Laboratory Results - last 24 hr 06/21/22 06/21/22 06/21/22 23:27 23:27 23:27 WBC 7.73 RBC 5.37 Hgb 15.9 Hct 47.2 MCV 88 MCH 29.6 MCHC 33.7 RDW 13.0 Plt Count 298 MPV 9.5 Immature Gran % 0.5 Neutrophils % 68.0 Lymphocytes % 21.9 Monocytes % 7.4 Eosinophils % 1.6 Basophils % 0.6 Nucleated RBC % 0.0 Absolute Neutrophils 5.26 Absolute Lymphocytes 1.69 Absolute Monocytes 0.57 Absolute Eosinophils 0.12 Absolute Basophils 0.05 PT 9.6 INR 0.9 APTT 26.1 Sodium 142 Potassium 3.7 Chloride 105 Carbon Dioxide 26.0 Anion Gap 11.0 BUN 11 Creatinine 1.2 Est GFR (CKD-EPI 2020) 64.25 Glucose 327 H Hemoglobin A1c Calcium 10.0 Magnesium 2.1 Total Bilirubin 0.8 AST 21 ALT 32 Alkaline Phosphatase 108 Troponin I < 50 Total Protein 8.4 H Albumin 3.7 TSH 6.86 H Free T4 0.95 Urine Color Urine Clarity Urine pH Ur Specific [place] Urine Protein Urine Ketones Urine Blood Urine Nitrite Urine Bilirubin Urine Urobilinogen Ur Leukocyte Esterase Urine RBC Urine WBC Ur Epithelial Cells Urine Crystals Urine Bacteria Urine Mucus Ur Culture Indicated? Urine Glucose Urine Opiates Screen Urine Methadone Screen Ur Barbiturates Screen Ur Tricyclics Screen Ur Amphetamines Screen U Benzodiazepines Scrn Urine Cocaine Screen Ur THC Screen Ethyl Alcohol COVID-19 Source SARS-CoV-2 (PCR) Add-On Test Request 06/21/22 06/21/22 06/22/22 23:27 23:29 01:50 WBC RBC Hgb Hct MCV MCH MCHC RDW Plt Count MPV Immature Gran % Neutrophils % Lymphocytes % Monocytes % Eosinophils % Basophils % Nucleated RBC % Absolute Neutrophils Absolute Lymphocytes Absolute Monocytes Absolute Eosinophils Absolute Basophils PT INR APTT Sodium Potassium Chloride Carbon Dioxide Anion Gap BUN Creatinine Est GFR (CKD-EPI 2020) Glucose Hemoglobin A1c Calcium Magnesium Total Bilirubin AST ALT Alkaline Phosphatase Troponin I Total Protein Albumin TSH Free T4 Urine Color Urine Clarity Urine pH Ur Specific [place] Urine Protein Urine Ketones Urine Blood Urine Nitrite Urine Bilirubin Urine Urobilinogen Ur Leukocyte Esterase Urine RBC Urine WBC Ur Epithelial Cells Urine Crystals Urine Bacteria Urine Mucus Ur Culture Indicated? Urine Glucose Urine Opiates Screen Negative Urine Methadone Screen Negative Ur Barbiturates Screen Negative Ur Tricyclics Screen Negative Ur Amphetamines Screen Negative U Benzodiazepines Scrn Negative Urine Cocaine Screen Negative Ur THC Screen Negative Ethyl Alcohol < 3.0 COVID-19 Source Nasopharynx SARS-CoV-2 (PCR) Negative Add-On Test Request 06/22/22 06/22/22 06/22/22 01:50 04:05 06:15 WBC RBC Hgb Hct MCV MCH MCHC RDW Plt Count MPV Immature Gran % Neutrophils % Lymphocytes % Monocytes % Eosinophils % Basophils % Nucleated RBC % Absolute Neutrophils Absolute Lymphocytes Absolute Monocytes Absolute Eosinophils Absolute Basophils PT INR APTT Sodium 144 Potassium 3.3 L Chloride 109 H Carbon Dioxide 24.0 Anion Gap 11.0 BUN 11 Creatinine 1.0 Est GFR (CKD-EPI 2021) 79.97 Glucose 257 H Hemoglobin A1c Calcium 9.3 Magnesium 2.0 Total Bilirubin 0.7 AST 20 ALT 25 Alkaline Phosphatase 97 Troponin I < 50 Total Protein 7.3 Albumin 3.2 L TSH Free T4 Urine Color Yellow Urine Clarity Clear Urine pH 5.5 Ur Specific [place] 1.010 Urine Protein Negative Urine Ketones Trace H Urine Blood Moderate H Urine Nitrite Negative Urine Bilirubin Negative Urine Urobilinogen 0.2 Ur Leukocyte Esterase Negative Urine RBC 10-20 H Urine WBC 0-2 Ur Epithelial Cells Rare Urine Crystals Negative Urine Bacteria Rare Urine Mucus Negative Ur Culture Indicated? No Urine Glucose >=1000 H Urine Opiates Screen Urine Methadone Screen Ur Barbiturates Screen Ur Tricyclics Screen Ur Amphetamines Screen U Benzodiazepines Scrn Urine Cocaine Screen Ur THC Screen Ethyl Alcohol COVID-19 Source SARS-CoV-2 (PCR) Add-On Test Request 06/22/22 06/22/22 06/22/22 06:15 06:15 06:15 WBC 7.32 RBC 4.85 Hgb 14.7 Hct 43.5 MCV 90 MCH 30.3 MCHC 33.8 RDW 13.1 Plt Count 269 MPV 9.9 Immature Gran % Neutrophils % Lymphocytes % Monocytes % Eosinophils % Basophils % Nucleated RBC % Absolute Neutrophils Absolute Lymphocytes Absolute Monocytes Absolute Eosinophils Absolute Basophils PT INR APTT Sodium Potassium Chloride Carbon Dioxide Anion Gap BUN Creatinine Est GFR (CKD-EPI 2020) Glucose Hemoglobin A1c 9.2 H Calcium Magnesium Total Bilirubin AST ALT Alkaline Phosphatase Troponin I Total Protein Albumin TSH Free T4 Urine Color Urine Clarity Urine pH Ur Specific [place] Urine Protein Urine Ketones Urine Blood Urine Nitrite Urine Bilirubin Urine Urobilinogen Ur Leukocyte Esterase Urine RBC Urine WBC Ur Epithelial Cells Urine Crystals Urine Bacteria Urine Mucus Ur Culture Indicated? Urine Glucose Urine Opiates Screen Urine Methadone Screen Ur Barbiturates Screen Ur Tricyclics Screen Ur Amphetamines Screen U Benzodiazepines Scrn Urine Cocaine Screen Ur THC Screen Ethyl Alcohol COVID-19 Source SARS-CoV-2 (PCR) Add-On Test Request DONE
[2022-06-22] MEDS: Mylanta Suspension 30 ML CUP PO ×2 (17:28→20:34)
--- NOTE | 2022-06-22 17:34 | SP_ITS ---
Date of service: 06/22/22 Time of Service: 16:00 Subjective Clinical (Bedside) Swallow Evaluation Speech Language Pathology Patient referred for Clinical Swallow Evaluation from Dr Caldwell given dysarthria and suspected CVA. Precautions: Fall, Standard, Full Code SUBJECTIVE: Patient received alert/awake, lethargic, agreeable to evaluation, able to communicate wants/needs effectively; able to demonstrate comprehension of recommendations for safe p.o. intake upon discharge once deemed medically stable.? Patient initially denies any difficulties with swallow, denies reflux, later states he is on omeprazole. His partner is also present for this session and corroborates his report. ? HPI: Pt is a 71 year old M admitted with slurred speech and R hemiparesis. CTA revealed L carotid stenosis but no acute findings on brain CT. MRI performed this date revealed L pontine stroke (unilateral). He had prior CVA in 2009. Predisposing dysphagia risk factors: Suspected GERD Clinical signs of possible chronic dysphagia: n/a Precipitating dysphagia risk factors / triggering event: CVA L pontine stroke. PFSH All Active Problems?(Updated 06/22/22 @ 05:34 by Tony Caldwell) Hyperlipidemia (Chronic) Right sided weakness (Acute) Elevated TSH (Acute) Daytime sleepiness (Acute) Low back pain (Chronic) Diarrhea (Acute) Urinary frequency (Acute) Fatigue (Chronic) Hypertension (Chronic) Numbness of left foot (Acute) Medical History? CVA (cerebral vascular accident) 2009 ? IMPRESSIONS & PLAN: Patient presents currently with likely mild to moderate dysphagia and [id number] dysarthria. Concern for aspiration, especially given nature of pontine stroke to evolve with worsening symptoms. Nursing should monitor for s/sx aspiration and if it is felt his swallow symptoms are worsening, consider downgrade to puree/mild thick liquids or NPO. If patient is still admitted Monday, consider inpatient MBSS. Cognition was not evaluated this date but [employer] is able to provide further evaluation as needed. Further [facility] services: Inpatient rehab facility such as [facility] is recommended with [facility] services. Patient to be followed while on unit up to 3x weekly ? Instrumentation: ? VFSE/MBSS ? While on unit ? Diet Texture Modification(s): IDDSI Level(s) SOLIDS 5-Minced & Moist Solids LIQUIDS 0-Thin Liquids - VERY SMALL SIPS Medication Intake: Whole or crushed if able with 4-Extremely Thick Liquids RISK MANAGEMENT: HOB upright as tolerated; upright for all PO intake. Encourage physical mobility as tolerated. Oral hygiene BID/2x per day & before/after PO intake, using friction with toothbrush on all oral structures as tolerated ? Level of Assistance/Supervision: 1:1 close supervision for all PO intake PO intake only when awake/alert? Strategies/Adaptations/Assistive Equipment: Reduce auditory and/or visual distractions when eating Provide verbal and/or visual cues to use recommended strategies VERY Small sips Small bites when eating Slow rate of intake Avoid straws Multiple swallows Small+frequent meals throughout day Posture/Positioning Needs: Maintain upright position at least 30 minutes after meals Avoid meals/snacks 2-3 hours prior to reclining/sleeping Sleep with head of bed elevated to reduce likelihood of nocturnal reflux ? OBJECTIVE: Respiratory: Room air, tolerates well Language: Grossly WFL during this evaluation, but nursing reports intermittent aphasia Hearing: WFL for purposes of close conversation Mental Status: Appears with slow processing speed, reports he is very fatigued Speech: Dysarthric Assessment Tasks: DDK, conversation, automatic speech tasks Features noted: Weak articulatory contacts Short breath groups Occasionally reduced rhythm Voice quality is strained, rough, pressed Oral Motor Exam: ?Fully Edentulous with top & bottom dentures ?Oral Mucosa ? Moist ? Fair oral care ? CN V - Trigeminal ? Jaw Movement ? Mild Impaired Vertical RO M? Intact Strength ? CN VII ? Labial/Facial ? Impaired ROM (R) ? Impaired strength ? Impaired coordination ? CN IX ? Palate ? Unable to visualize ? CN X ? Laryngeal ? MPT: 15 seconds (reduced) ? Vocal quality ? Rough ? Strained ?Volitional cough ? Weak ? Uncoordinated ? CN XII ? Lingual ? Impaired strength appears bilateral ?Possible slight R deviation to protrusion ? Volitional Swallow ? Suspect delayed onset of swallow ? Palpable laryngeal excursion ? [place] Swallow Protocol Results ? FAIL Overt signs of aspiration during or immediately after completion. Food items tested: ?? X Ice: 2 chips IDDSI 0: x 3 oz and 10 sips via cup edge, 1x via straw IDDSI 4: Pudding x5 bites IDDSI 7: Valentin cracker x1 Oral phase: Difficulty chewing - dentures - reduced rotary and prolonged mastication Residue mild R>L Pharyngeal phase: Delayed swallow initiation Cough after swallow Throat clearing? ? Provided education to: Patient, Family, Nursing Topics Addressed: anatomy/physiology of swallowing mechanism, overt s/sx to monitor for re: potential aspiration of food / liquids, recommendations for improved oral care, relationship between respiratory function changes and deglutition, Rationale for recommendations as outlined below Outcome: Verbalized/demonstrated understanding Needs review/reinforcement Goals: Patient will tolerate safest/least restrictive diet of without s/sx aspiration. Patient/caregiver will be independent with aspiration precautions, diet modifications, and safe swallowing strategies. [employer] CPT Code: 56711 Clinical Swallowing Evaluation TIME SPENT: 45 min Coding Diagnoses CPT Codes EVALUATE SWALLOWING FUNCTION - 07125 ([id number])
--- NOTE | 2022-06-22 17:35 | IN_ITS ---
PT Notes Visit Reasons: CVA, HTN Physical Therapy Inpatient Initial Evaluation Date: 06/22/2022 Referring Doctor: Tony Caldwell MD PT Orders: PT CONSULT: Eval for assistive device Precautions: Fall. Standard. Activity as tolerated. Patient Profile/Admitting Diagnosis: Bennett is a 72-year-old male patient who presented to the ED on 06/21/2022 due to R- sided weakness, slurring of speech, difficulty walking and worsening fatigue as well as daytime sleepiness. Patient is admitted for management of acute L MCA CVA, HTN, and hyperlipidemia. PMHX: All Active Problems?(Updated 06/22/22 @ 05:34 by Tony Caldwell) Hyperlipidemia (Chronic) Right sided weakness (Acute) Elevated TSH (Acute) Daytime sleepiness (Acute) Low back pain (Chronic) Diarrhea (Acute) Urinary frequency (Acute) Fatigue (Chronic) Hypertension (Chronic) Numbness of left foot (Acute) Medical History? CVA (cerebral vascular accident) 2009 Social History/Home Situation: Lives with in a private home. Independent with all aspects of ADLs prior to surgery. Equipment Owned/DME: None Subjective: Agreeable to getting out of bed. Denies headache, chest pain, and lightheadedness throughout. Denies pain in the R UE/LE. Did not report any changes in sensation in the R UE and LE. Objective: General Observation: Supine in bed. R UE elevated on a rolled sheet. Mental Status: Alert and oriented as to person, place, time, and purpose. Able to pay attention, focus, but have difficulty responding 50% of the time. Pain: Denies Vital Signs:Cosley monitored by nursing staff ROM: Right Upper Extremity: Shoulder Flexion unable. Shoulder abduction unable. Elbow flexion unable. Wrist flexion unable. Functional opening and closing of hand unable. Left Upper Extremity: Shoulder Flexion WFL. Shoulder abduction WFL. Elbow flexion WFL. Wrist flexion WFL. Functional opening and closing of hand WFL. Right Lower Extremity: Hip flexion. Hip abduction unable. Knee flexion unable. Ankle dorsiflexion unable. Ankle plantarflexion unable. Left Lower Extremity: Hip flexion WFL. Hip abduction WFL. Knee flexion WFL. Ankle dorsiflexion WFL. Ankle plantarflexion WFL. Strength: Right Upper Extremity: Shoulder flexors 0/5. Shoulder abductors 0/5. Elbow flexors 0/5. Elbow extensors /5. Hydrochloric Manufacturing Supervisor absent Left Upper Extremity: Shoulder flexors 5/5. Shoulder abductors 5/5. Elbow flexors 5/5. Elbow extensors 5/5. Hydrochloric Manufacturing Supervisor strong. Right Lower Extremity: Hip flexors 1/5. Hip abductors 1/5. Knee flexors 1/5. Knee extensors 1/5. Ankle dorsiflexors 1/5. Ankle plantarflexors 1/5. Left Lower Extremity: Hip flexors 5/5. Hi1p abductors 5/5. Knee flexors 55/5. Knee extensors /5. Ankle dorsiflexors 5/5. Ankle plantarflexors 5/5. Bed Mobility/Transfers: Supine to sit minimal assist of 2 Sit to supine minimal assist of 2 Sit to stand minimal assist of 2 Stand to sit minimal assist of 2 Bed to reclining chair minimal assist of 2 Gait: Instructed patient with level surface ambulation of 3 feet requiring minimla assist of 2 using hemiwalker on the L. Maximal verbal cueing to side step, pivot, weight shift, and back up with the R LE, L LE sliding back along. No limb advancement on the R but is able to use R hip extensors/R gluteals to drag R LE back along with moderate cueing. R UE support provided for transfer. Trunk lean to R and forward. Balance: Static Sitting: Good Dynamic Sitting: Fair Static Standing: Poor Dynamic Standing: Poor Special Tests: Mobility Limitations Standardized Measure [facility] AM-PAC 6 clicks Basic Mobility Inpatient Short Form: Raw Score: 11 CMS Score: 73% deficit Informed Consent/Education: Patient was instructed in purpose of PT consult and plan of care. Agreeable to proceed with established PT POC to achieve personal goals. NEURO: Tone: hypotonic in R UE/LE, R UE>>R LE Trunk lean to R while walking Flaccid paralysis in R UE Able to discriminate items on his R side: hooks L leg using R foot from behind without difficulty; able to clasp L hand with the R without difficulty ASSESSMENT: R-sided UE hemiplegia and LE hemiparesis leading to severe impairment in functional mobility limiting safety of bed mobility, transfer, and ambulation tasks. No sensory deficits as to light touch and presure in R UE/LE. Some numbness reported in the ipsilateral side of face. Needs hemiwalker on the L side. Requires assist of 2 and maximal cueing for safety. Patient presents with clinical signs and symptoms consistent with current/admitting diagnoses that have resulted to mobility limitations, gait i nstability, generalized weakness, and overall ADL decline as demonstrated by the following impairment level findings: 1. Decreased strength to R UE/LE major muscle groups 2. Impaired sitting/standing balance 3. Impaired activity tolerance 4. Limitation of joint range of motion in R UE/LE joints 5. Flaccid paralysis in R UE 6. Hypotoninc R UE/LE 7. Impaired postural control Impairments are contributing to the following functional limitations: 1. Decline in bed mobility skills 2. Decline in transfer skills 3. Difficulty with ambulation without assistive device and physical assistance 4. Increased completion time for mobility ADL performance 5. Increased risk for falls 6. Difficulty with managing steps alone safely Patient is assessed as a 30299 moderate complexity based on the following: History: 71-year-old male with past medical history as indicated above Examination: Demonstrable impairment in strength, balance, and mobility level with underlying impairments and functional limitations as exhibited above as well as deficit score of 7% utilizing the [facility] Mobility Inpatient Short Form Presentation: Evolving Decision Makin moderate complexity Goals: Goals X1 week 1. Supine-Sit independent 2. Sit-Supine independent 3. Sit-Stand independent 4. Stand-Sit independent with hemiwalker 5. Bed-Chair independent with hemiwalker 6. Chair-Bed independent with hemiwalker 7. Independent gait on level surface with use of hemiwalker for at least 300 feet without report of pain nor dyspnea 8. Independent stair negotiation while holding onto L rail for at least 5 steps without report of pain nor dyspnea 9. Independent with home exercise program 10. Fair static and dynamic standing balance/tolerance PLAN OF CARE/TREATMENT PLAN: 1-2x/day, 7 days/week x 1 week. Plan of care has been reviewed with the AUTOMATION MECHANIC providing the service under Physical Therapy direction. Initiate passive R UE/LE PNF patterns in supine. Perform seated/supine bilateral UE activities to increase R shoulder/elbow/wrist ROM. Bridging activity x 5 or as tolerated, support R LE as needed. Work on trunk stabilization exercises in sitting/standing. Increase static standing tolerance to 5 minutes while holding onto hemiwalker on the L. Wheelchair follow for short distance ambulation with assist of 2. Train with bed mobility and transfers using AD. DISCHARGE RECOMMENDATIONS: [] Home with no services [] [] Home with services [specify] [] Home with outpatient PT [] [] SNF for continued rehabilitation [] [] [facility] [] [] SNF versus LTC based on ability to participate and progress [] [X] Acute stroke rehab facility to maximize functional mobility outcomes, increase strength, and improve balance to maximize spontaneous recovery TREATMENT CODE/TIME: 01157 x 20 minutes, 82157 x 26 minutes beginnig at 16:56 PM. Thank you for the opportunity to participate in the care of this patient. Yissel Rolon PT, DPT, CLT [facility] [place], [place] All Active Problems?(Updated 06/22/22 @ 05:34 by Tony Caldwell) Hyperlipidemia (Chronic) Right sided weakness (Acute) Elevated TSH (Acute) Daytime sleepiness (Acute) Low back pain (Chronic) Diarrhea (Acute) Urinary frequency (Acute) Fatigue (Chronic) Hypertension (Chronic) Numbness of left foot (Acute) Medical History? CVA (cerebral vascular accident) 2009
[2022-06-22] MEDS: Normal Saline Flush 10 ML SYR IVP (20:24)
[2022-06-23] VITALS (9 sets, daily range): BP systolic 134–160; BP diastolic 77–99; PULSE 73–100; RESP 15–18; TEMP 36.6–37.4; O2SAT 94–98
[2022-06-23] MEDS: Metoprolol 12.5 MG TAB PO ×4 (06:06→23:14)
[2022-06-23 07:14] LABS: Calculated LDL 122 mg/dL (<100); Cholesterol 203 mg/dL (<200); HDL Cholesterol 33 mg/dL (40-60); Triglyceride 241 mg/dL (<150)
--- NOTE | 2022-06-23 07:42 | OTIE_ITS ---
Occupational Therapy Notes Inpatient Occupational Therapy Evaluation Date: 06/23/22 Referring Doctor:Tony Caldwell OT Orders: Urgent Precautions: Fall, standard, full PATIENT PROFILE/ADMITTING DIAGNOSIS: Pt is a 71 year old male who was admitted through the ED with the following dx of dysphagia, dysarthria, acute stroke d/t ischemia, hyperlipidemia, (R) sided weakness, elevated TSH, LBP, fatigue, HTN, numbness of foot. Past Medical History: All Active Problems?(Updated 06/22/22 @ 05:34 by Tony Caldwell) Hyperlipidemia (Chronic) Right sided weakness (Acute) Elevated TSH (Acute) Daytime sleepiness (Acute) Low back pain (Chronic) Diarrhea (Acute) Urinary frequency (Acute) Fatigue (Chronic) Hypertension (Chronic) Numbness of left foot (Acute) Medical History? CVA (cerebral vascular accident) 2009 Social History/Home Situation: Lives with his and is (I) at his baseline level of function. He has a walk in shower and does not use any (A) devices at baseline. Equipment owned/DME: None SUBJECTIVE: Pt was lying in bed when OT arrived with his present. He states that he has had a stroke in the past. He notes that prior to his CVA he did have increased fatigue and pain in her leg due to what sounds like sciatica. OBJECTIVE: General Observation: Pleasant, (R) side neglect, IV in (L) UE, telemetry Mental Status: A&Ox3 Pain: c/o pain in leg/foot area ROM: RUE slight digit flexion at the IPs with a gentle grasp, when he sneezes he can lift his (R) UE on to his abdomen, AROM of elbow with decreased control this morning but able to perform, L UE AROM WFL STRENGTH: RUE Unable to assume test position with (R) UE to properly test strength LUE 5/5 throughout FUNCTIONAL MOBILITY/ADLS: Transfers with (A)x2 BATHING NT today, however OT and pt discuss that with elbow flexion actively today that goal is for him to use his (R) UE to wash his (L) DRESSING max (A) (B) LE for don and doffing (B) socks TOILETING max (A) EATING can use his (L) UE for bringing coffee cup to mouth (I) Manual Therapy [id number]: OT performed PROM to pts (R) UE including shoulder, elbow, wrist and digits. AROM with elbow and digits today which pt tolerated well. OT and pt discussed performance of AROM of digits and increased functional use of his (R) UE with ADLs. Increased fatigue noted post session with AROM. BALANCE: Static sitting full support to core/abdomen good Dynamic Sitting Good with support SPECIAL TESTS: Daily Activity Limitations Standardized Measure [facility] AM -PAC ?6 clicks? Daily Activity Inpatient Short Form: Raw score: 11 Standardized score: 29.04 CMS score: 70.42% INFORMED CONSENT/EDUCATION: Pt instructed in purpose of OT Consult and plan of care. ASSESSMENT: Patient is a 71-year-old male referred to occupational therapy services with diagnosis of dysphagia, dysarthria, acute stroke d/t ischemia, hy perlipidemia, (R) sided weakness, elevated TSH, LBP, fatigue, HTN, numbness of foot. Patient presents with clinical signs and symptoms consistent with dx, as demonstrated by the following impairment level findings/functional limitations: Impairments in ADL/IADL and leisure activities, decreased functional activity tolerance, (R) sided weakness, (R) side neglect, decreased verbal communication-able to but difficult with word finding, increased fatigue, decreased functional use of (R) side of the body, impairments in functional mobility. AMPAC score 11 Patient is assessed as a high 99385 complexity based on the following: History: see above Examination: see functional limitations as noted above Presentation: evolving Decision Making: AMPAC score 11 GOALS Goals x1 week 1. Transfers mod (A) 2. Dressing mod (A) 3. Bathing mod (A) 4. Toileting mod (A) 5. Eating (I) PLAN OF CARE/TREATMENT PLAN: 1x/day, 5 days/ week x 1week Initiate Occupational Therapy Services for bathing, dressing, grooming, toileting, eating, transfer training. DISCHARGE RECOMMENDATIONS BAsed on pts current level of function and intense rehabilitative needs at this time, OT recommends that pt go to [facility] when medically cleared per MD. TREATMENT TIME/MINUTES/CODES 68901, Shaina De La O OTR/[facility]
[2022-06-23] MEDS: Clopidogrel 75 MG TAB PO (08:42)
[2022-06-23] MEDS: Aspirin 81 MG CHEW PO (08:43)
--- NOTE | 2022-06-23 10:29 | NUR.NOTE ---
Nursing Note: Accessed chart to determine orders for EKG and to determine whether or not one needs to be cancelled.
--- NOTE | 2022-06-23 14:33 | CMPROGNOTE_ITS ---
- If Service Date Differs Date of service: 06/23/22 Time of Service: 14:33 Care Management Progress Note S/O: Bennett was sitting up in his chair when CM met with him. His s/o, Larissa, was in the room with him. Bennett has had an MRI, has had consults with Neuro, PT, OT, and Speech, and the recommendation is for him to go to an acute rehab facility. CM discussed this with Bennett, and he agreed to have referrals sent to [facility] and [facility]. CM received a bed offer from [facility], pending insurance PA. CM will discuss this with Bennett, to determine if he will accept the bed offer. He will likely transport EMS. CM will continue to follow. A: Bennett is a 71 year old male admitted to [facility] 06/22/22 with CVA, HTN. P: Bennett may benefit from acute rehab, which CM will discuss with him. He will likely transport via EMS. He will follow up with his PCP and discharge plan of care. CM will continue to follow.
--- NOTE | 2022-06-23 15:34 | W.PM.PROGNOT ---
Date of Service Date of service: 06/23/22 Time of Service: 15:34 Assessment and Plan Assessment and plan (1) CVA (cerebral vascular accident): Start date: 06/21/22 Assessment and plan: CTA revealing left carotid artery stenosis at 50%. MRI shows infarct of left medial Lisa. Improvement in voluntary movement of RUE. TTE: EF 55%. Unable to assess for wall motion abnormalities due to technically limited images.? LA normal. Bubble not done Patient did have previous CVA symptoms with right facial and left foot numbness which did not persist and this occurred more than a decade ago in 2009. Neurology has evaluated. ASA, Plavix, high dose statin. PT/OT/Speech. Possible swallow study tomorrow. Referrals sent to rehab facilities. A1c 9.2. Will initiate tx and have certified adapted physical educator involved. Qualifiers: CVA mechanism: stenosis Precerebral and cerebral artery: middle cerebral artery Laterality of affected vessel: left Qualified Code(s): I63.512 - Cerebral infarction due to unspecified occlusion or stenosis of left middle cerebral artery (2) Hypertension: Status: Chronic Assessment and plan: Patient was hypertensive upon admission and he will have permissive hypertension but initiated on low-dose metoprolol to control systolic at 180 and diastolic at 95. (3) Hyperlipidemia: Status: Chronic Assessment and plan: Patient was on moderate to low-dose statin therapy and this will be increased to high-dose statin therapy with atorvastatin 80 mg daily. He was given 1 dose now and then nightly. (4) Diabetes mellitus type 2 in obese: Status: Acute Assessment and plan: No previous dx of DM. A1c of 9.2 Initiate Januvia and metformin. unit educator. Diabetic diet. Subjective Subjective Patient reports: no new complaints and afebrile; denies shortness of breath Interval history since last seen: More movement in right arm. He hasn't noted any improvement in slurred speech. Exam Narrative Exam Narrative: General: Asleep/wakens easly. good eye contact with speech difficulty but in no acute distress. He is clumsy with his right upper extremity and has a droop right face. HEENT: sclera clear. CONNER Neck: Supple without JVD and no auscultated bruits. Lungs: Clear to auscultation and percussion. Heart: Regular rate and rhythm with no murmurs Abdomen: Obese contour, soft and nontender Extremities: Without clubbing, cyanosis or pitting edema. Neuro: Cranial nerves II through XII gross intact, right facial droop and tongue protruding to the right as mentioned, right upper extremity 2 out of 5 strength with patient able to move against gravity only, right lower extremity with 3-4 out of 5 strength move against gravity and some resistance, left upper and lower extremity normal 5 out of 5 strength. No Babinski bilaterally. Psych: Normal affect and mood. No abnormal thought processes. . Objective Last Vital Signs Temp 36.6 C 06/23/22 15:18 Pulse 73 06/23/22 15:18 Resp 16 06/23/22 15:18 BP 134/81 06/23/22 15:18 Pulse Ox 98 06/23/22 15:18 Laboratory Results - last 24 hr 06/23/22 06:08 Triglycerides 241 H Total Cholesterol 203 H LDL Cholesterol, Calc 122 H HDL Cholesterol 33 L Time Spent with Patient Time Spent with Patient: 25-34 minutes Time was spent: preparing to see the patient(eg.review tests), obtaining and/or reviewing separately otained hiistory, ordering medications,tests, procedures, referring, communicating with other health congregational care pastor, indepentently interpreting results and counseling the patient
--- NOTE | 2022-06-23 16:39 | PT.INTREAT ---
Date of service: 06/23/22 Time of Service: 13:05 PT Notes Visit Reasons: CVA, HTN Inpatient Physical Therapy Treatment Note [facility] Date: 06/23/22 PRECAUTIONS: Fall. Standard. Activity as tolerated. SUBJECTIVE: Patient sitting up in recliner, agreeable to therapy. OBJECTIVE: PAIN: none reported BED MOBILITY/TRANSFERS Rolling L/R: verbal cues and min assist Supine-sit: mod assist of 2 Sit-supine: mod assist of one with verbal and tactile cues Sit-stand: Mod assist of one with verbal and tactile cues to encourage weightbearing through affected side Stand-sit: contact guard with verbal cues for safety Bed-Chair: min assist of one with verbal cues Chair-bed: min assist of one with verbal cues GAIT Assistive Device: chetan walker, parallel bars Weight bearing: full - verbal cues to lock affected leg, reminders to straighten up and shift weight to both sides. Assist: mod to contact guard, variable Distance: 20 feet x2 Deviation: Tendency to drag affected leg, ability to use reciprocal gait pattern. Prefers to use affected arm for stability as well, on both parallel bars and chetan walker. Initially scuffle step-to pattern with affected leg leading. After 10 feet, steps became more confident, reciprocal pattern noted with increased weightbearing, increased stance time on affected leg. NEURO RE ED: Taught patient to bear weight through unaffected arm over affected arm onto affected leg when transferring to standing position. Instructed in bed mobility, especially using unaffected leg to scoop affected leg onto the bed, use feet and elbows to bridge in order to scoot up/down and side/side. ASSESSMENT: Patient is rapidly making progress. Patient and significant other seem well pleased with his achievements. PLAN: Continue therapy per plan of care for neuro reeducation, balance, gait, strength and endurance. TREATMENT CODE/TIME: 36689 Gait 15, 84739 Neuro Re ed 30 beginning at 13:05
--- NOTE | 2022-06-23 17:06 | PT.INNT ---
Date of service: 06/23/22 Time of Service: 11:32 PT Notes Visit Reasons: CVA, HTN Patient is on the phone with his grandson from [place]. Significant other to come get therapist from gym when patient is off the phone. Patient then received lunch. Agreeable to therapy in the afternoon.
[2022-06-23] MEDS: Famotidine 20 MG TAB PO (20:52)
[2022-06-23] MEDS: Atorvastatin 40 MG TAB 80 MG PO (20:52)
[2022-06-24] VITALS (8 sets, daily range): BP systolic 123–173; BP diastolic 82–96; PULSE 75–98; RESP 16–22; TEMP 36.7–37.1; O2SAT 92–96
[2022-06-24] MEDS: Metoprolol 12.5 MG TAB PO ×4 (05:54→23:04)
[2022-06-24 06:54] LABS: Anion Gap 9.4 mmol/L (3-11); BUN 17 mg/dL (7-18); CO2 25.6 mmol/L (21.0-32.0); CREATININE 1.1 mg/dL (0.70-1.30); Calcium 9.8 mg/dL (8.5-10.1); Chloride 105 mmol/L (98-107); Estimated GFR 71.32 (mL/min/1.73m2); Glucose 235 mg/dL (74-106); Potassium 3.5 mmol/L (3.5-5.1); Sodium 140 mmol/L (136-145)
[2022-06-24] MEDS: Aspirin 81 MG CHEW PO (08:04)
[2022-06-24] MEDS: Famotidine 20 MG TAB PO ×2 (08:04→20:09)
[2022-06-24] MEDS: Clopidogrel 75 MG TAB PO (08:04)
[2022-06-24] MEDS: Insulin Aspart 300 UNITS/3 ML PEN SC ×3 (08:39→17:08)
--- NOTE | 2022-06-24 09:32 | OTTR_ITS ---
Occupational Therapy Notes Occupational Therapy Inpatient Treatment Note Date: 06/24/22 PRECAUTIONS: fall, standard, full SUBJECTIVE: Pt states that he would like to go home. He is still very reliant on (A) for his ADL/IADL routines. He has minimal to no movement of his (R) UE. OBJECTIVE: PAIN:no c/o pain BATHING: seated in chair with max (A) set up/clean up Upper Body: with (L) UE (I) face, (R) UE, (L) UE TOXICOLOGY SUPERVISOR with (R) with mod (A) Lower Body: max (A) DRESSING: Upper Extremity: mod (A) don and doffing hospital gown Lower Extremity: don and doffing (B) socks max (A) EATING: Seated in chair (I) with (L) UE, (R) UE non contributory. OT continues to recommend rehabilitation facility that specializes in stroke rehabilitation. TREATMENT CODES/TIME: [id number], 25 minutes (08:50) Shaina De La O OTR/[facility]
--- NOTE | 2022-06-24 12:51 | PHA.REVIEW2 ---
Pharmacy Admission Review - Admission Clinical Review (Last Reviewed 06/22/22 @ 05:17 by Tony Caldwell) Diabetes mellitus type 2 in obese (Acute) Dysphagia (Acute) Dysarthria (Acute) Acute stroke due to ischemia (Acute) Right sided weakness (Acute) No Known Allergies Allergy (Verified 06/21/22 23:32) Resuscitation Status Full Code Height 6 ft Weight 96.4 kg - Renal Dosing Renal Dosing: BUN 17 mg/dL (7-18) 06/24/22 06:06 Creatinine 1.1 mg/dL (0.70-1.30) 06/24/22 06:06 Medications needing adjustments: Reviewed (Crcl ~73 mL/min current meds okay) - Anticoagulation Anticoagulation: Hgb 14.7 g/dL (13.5-17.5) 06/22/22 06:15 Hct 43.5 % (40.0-50.0) 06/22/22 06:15 Plt Count 269 10^3/uL (130-400) 06/22/22 06:15 INR 0.9 (0.9-1.1) 06/21/22 23:27 Creatinine 1.1 mg/dL (0.70-1.30) 06/24/22 06:06 DVT Prophylaxis: Reviewed (SCDs ordered) Therapeutic Anticoagulation: N/A - Opiate Usage Evaluate Pain Scale/Pains Meds: N/A - Relevant Labs Sodium 140 mmol/L (136-145) 06/24/22 06:06 Potassium 3.5 mmol/L (3.5-5.1) 06/24/22 06:06 Chloride 105 mmol/L (98-107) 06/24/22 06:06 Magnesium 2.0 mg/dL (1.8-2.4) 06/22/22 06:15 Electrolytes, C-Reactive P, ESR: Reviewed - DM Control DM Control: Glucose 235 mg/dL (74-106) H 06/24/22 06:06 Hemoglobin A1c 9.2 % (<5.7) H 06/22/22 06:15 Finger Stick Blood Glucose 294 Finger Stick Blood Glucose 294 Finger Stick Blood Glucose 261 Finger Stick Blood Glucose 261 DM Control: Reviewed Insulin Dosing, Diabetic Medication: sliding scale insulin aspart ordered - Cardiac Review Cardiac Review: Troponin I < 50 ng/L (<or=60) 06/22/22 04:05 BP, HR, EF%: Reviewed (allowing permissive hypertension per progress note) - Qtc Review QTc: Reviewed (QTc 489 on admission) If Elevated, List meds needing intervention: n/a - IV to PO Switch IV Medications: Reviewed - Home Meds Home Med List reviewed: Reviewed Relevent Home Meds Not ordered & why?: simvastatin (pt was changed to atorvastatin this admission) - Current meds Current Medication Order Review: Intervened (Discontinued a duplicate med order.) - Comments Comments/Follow Ups: Watch BP, HR, BG, labs and for med changes.
--- NOTE | 2022-06-24 14:28 | CMPROGNOTE_ITS ---
- If Service Date Differs Date of service: 06/24/22 Time of Service: 14:28 Care Management Progress Note S/O: Bennett was lying in bed when CM met with him. CM discussed his discharge plan, which will be for him to transfer to an acute rehab facility. He has received bed offers from [facility] and [facility], and accepted the bed at [facility], for early next week. CM talked to Dalila at [facility], who will submit PA for his insurance today, anticipating admission for Monday, pending bed availability and PA. CM will continue to follow. A: Bennett is a 71 year old male admitted to [facility] 06/22/22 with CVA, HTN. P: Bennett may benefit from acute rehab, which CM will discuss with him. He will likely transport via EMS. He will follow up with his PCP and discharge plan of care. CM will continue to follow.
--- NOTE | 2022-06-24 15:59 | ST.MBS ---
Date of Service Date of service: 06/24/22 Time of Service: 15:59 Modified Barium Swallow Study Findings: Video fluoroscopic Swallowing Evaluation (VFSE) / Modified Barium Swallow Study (MBSS) Speech Language Pathology Report Patient referred for VFSE/MBSS from Dr. Ramirez given s/sx aspiration with liquids and difficulty swallowing pills. HPI & Patient report of function: Pt is a 71 year old M admitted with slurred speech and R hemiparesis. CTA revealed L carotid stenosis but no acute findings on brain CT. MRI performed this date revealed L pontine stroke (unilateral). He had prior CVA of same location in 2009. Predisposing dysphagia risk factors: Suspected GERD Clinical signs of possible chronic dysphagia: n/a Precipitating dysphagia risk factors / triggering event: CVA L pontine stroke. IMPRESSIONS: Swallow safety is impaired; swallow efficiency is impaired. Dysphagia Outcome and Severity Scale: COMPONENT Scale SCORE 1 LEVEL (1-7) 3 Full PO: Modified Diet and/or [place] - Moderate to severe dysphagia; Total assist / Supervision or strategies 2 or more diet consistencies restricted Characterized by delayed swallow initiation, reduced & delayed A/P transit, difficulty with mastication, reduced anterior hyoid excursion, often absent epiglottic inversion (improves with more dense textures), and reduced UES distension. Frequent aspiration prior to, during, and after (on laryngeal residue) with thin liquids. Oral hold and 5cc sip size reduced frequency but did not eliminate aspiration. Increased viscosity to Mildly thick successfully reduced frequency of aspiration to intermittent (less than 30% of trials) and volume aspirated per event was significantly reduced. Oral and pharyngeal residue present (primarily vallecular in setting of reduced/absent epiglottic inversion. Clinical Indicator(s) of Prandial/Postprandial Aspiration include: Cough, Throat Clear. Patient appears to be at moderate risk for potential aspiration PNA and/or pulmonary compromise and low risk for malnutrition, low risk for dehydration. Diet modification is indicated; non-oral nutrition is not indicated. Swallow prognosis is good given: Positive prognostic factors: Time since onset, Family/caregiver support, non-degenerative condition Negative prognostic factors: Severity and pending patient/caregiver training in risk management as outlined, including use of trialed compensatory strategies. Patient appears to be a good candidate for behavioral swallow rehabilitation. RECOMMENDATIONS: Diet Texture Recommendation:? IDDSI LEVEL SOLIDS 5-Minced & Moist Solids LIQUIDS 2-Mildly Thick Liquids Please see further details at?www.iddsi.orghttp://www.iddsi.org/ MEDICATIONS Crushed, as able with 4-Puree and 2-Mildly Thick Liquid wash Diet texture modification is per patient's preference; please adjust diet textures at patient's discretion & collaboration with care team. Do not alter medications (e.g., cut)? without advice from your MD or pharmacist. Risk Management Strategies:? Behavioral reflux precautions, including upright position during + 90 mins after meals. Small bites, approx [id number] Very small sips, approx 5mL / teaspoon Alternate solids/liquids as able Multiple swallows per bolus to encourage clearance of pharyngeal stasis/residue Control risk factors for aspiration pneumonia via (a) thorough oral hygiene & (b) maintaining physical mobility as tolerated Therapy plan: Diet modifications, strategy training, increase oral care regimen, initiate CTAR & effortful swallow exercise; consider eMST if patient can/willing to obtain. ----- OBJECTIVE Videofluoroscopic Swallow Evaluation (VFSE/MBSS) was conducted in the lateral[ and [id number]] projection by Speech-Language Pathologist, in collaboration with Radiologist, to evaluate oropharyngeal swallow function. Anatomic view under fluoroscopy: WFL PO Barium Contrast Trials Oral barium water-soluble contrast was administered as follows: IDDSI Level 0 Varibar thin liquid (40% w/v) IDDSI Level 2 Varibar nectar thick/mildly thick liquid (40% w/v) IDDSI Level 4 Varibar pudding/pureed/extremely thick (40% w/v) IDDSI Level 7 Regular Solid: 1/2 celia cracker coated in 3 mL Varibar pudding 13 mm barium tablet taken with Extremely Thick Liquids. MBSImP Component Scores: COMPONENT Scale SCORE 1 Lip closure (0-4) 1 Resulted in interlabial escape, without progression to anterior lip 2 Hold Position (0-3) 0 Maintained a cohesive bolus between tongue to palatal seal 3 Bolus Preparation (0-4) 2 Demonstrated disorganized chewing/mashing with solid pieces of bolus unchewed 4 Bolus Transport (0-4) 2 Was with slowed tongue motion 5 Oral Residue (0-4) 2 Was a collection on oral structures 6 Swallow Initiation (0-4) 3 Occurred when the bolus head was in the pyriform sinuses 7 Soft Palate Elevation (0-4) 1 Allowed a trace column of contrast or air between soft palate and pharyngeal wall 8 Laryngeal Elevation (0-3) 1 Was decreased with partial superior movement of thyroid cartilage/partial approximation of arytenoids to epiglottic petiole 9 Anterior Hyoid Motion (0-2) 2 Demonstrated no anterior movement 10 Epiglottic Movement (0-2) 2 Resulted in no inversion 11 Laryngeal Closure (0-2) 1 Was incomplete with narrow a column of air/contrast in laryngeal vestibule 12 Pharyngeal Stripping Wave (0-2) 1 Was present, but diminished 13 Pharyngeal Contraction (0-3) NA 14 PES Opening (0-3) 1 Demonstrated partial distension/partial duration, with partial obstruction of flow 15 Tongue Base Retraction (0-4) 1 Allowed a trace column of contrast or air between tongue base and pharyngeal wall 16 Pharyngeal Residue (0-4) 2 Was a collection of residue within or on pharyngeal structures 17 Esophageal Clearance (0-4) NA Results: COMPONENT Scale SCORE 1 Oral Score (0-18) 9 2 Pharyngeal Score (0-29) 11 3 Esophageal Score (0-4) 0 Penetration-Aspiration Scale: COMPONENT Scale SCORE 1 Thin liquid (1-8) 7 Contrast entered the airway, passed below the vocal folds, and was not ejected from the trachea despite effort. 2 [place] thick (1-8) 6 Contrast entered the airway, passed below the vocal folds, and was ejected into the larynx or out of the airway. 3 Honey thick (1-8) NA 4 Pudding thick (1-8) 1 Contrast did not enter the airway 5 Cookie (1-8) 1 Contrast did not enter the airway Trialed Compensatory Strategies & Outcome: Maneuvers Successful (+) Unsuccessful (-) Postures Successful (+) Unsuccessful (-) 3 second Preparatory Set? ? + Chin Tuck Posture? ? Cough? ? Posterior Head tilt? Reflexive? ? +/- ? Cued? Throat Clear? ? Head Tilt to? Reflexive? ? + ? Left? Cued? Right? ? Saliva swallow? ? + Head Turn/Rotate to? ? Supraglottic Swallow? Left? ? Super-supraglottic Swallow? Right? ? - Bolus Modifications Successful (+) Unsuccessful (-) Delivery/Alternating Consistencies ? Follow with Liquid Wash + ? Follow with Solid Bolus? Delivery/Via Straw? ? Reduced Volume? ? + Reduced Rate of Intake? ? Increased Viscosity? ? + Other:?? ? Thank you for allowing us to take part in this patient's care. Please feel free to contact the [facility] Speech Language Pathology Department with any questions/concerns. Coding CPT Codes MOTION FLUOROSCOPY/SWALLOW - [id number] ([id number])
--- NOTE | 2022-06-24 16:15 | DI.RAD_ITS ---
Exam(s) RF MODIFIED SPEECH BA SWALLOW TECHNIQUE: Modified barium swallow was performed in conjunction with speech pathology. CONTRAST MATERIAL: Oral barium Oral water soluble contrast was administered. COMPARISON: No exams were available for comparison FINDINGS: Fluoroscopy was provided by the radiologist during modified barium swallow study performed by the spe ech pathologist. Please refer to that separate report. This is not a formal esophagram. Study is of the swallowing mechanism only. However, there was aspiration evident on this study. IMPRESSION: Aspiration evident. Please refer to speech therapist report for details. RADIATION DOSE DELIVERED: merline [place]=16.5 mGy
[2022-06-24] MEDS: Barium Sulfate 700 MG TAB PO (16:28)
[2022-06-24] MEDS: Barium Sulfate 81% w/w for Oral Suspension 148 GM BTL PO (16:28)
[2022-06-24] MEDS: Barium Sulfate Oral Paste 40% W/V 230 ML TUBE PO (16:29)
[2022-06-24] MEDS: Barium Sulfate 40% W/V 240 ML BTL PO (16:29)
--- NOTE | 2022-06-24 16:39 | PT.INTREAT ---
Date of service: 06/24/22 Time of Service: 09:15 PT Notes Visit Reasons: CVA, HTN Inpatient Physical Therapy Treatment Note [facility] Date: 06/24/22 PRECAUTIONS:Fall. Standard. Activity as tolerated. SUBJECTIVE: Patient reports being tired. Playfully states he is leaving and doesn't have time for therapy. Agreeable to therapy. OBJECTIVE: PAIN: none reported BED MOBILITY/TRANSFERS Rolling L/R: min assist- max assist, variable based on fatigue. Supine-sit: Mod to max assist Sit-supine: Max assist Sit-stand: min assist with verbal cues Stand-sit: contact guard Bed-Chair: min to mod assist with verbal cues Chair-bed: min to mod assist with verbal cues NEURO: Seated balance exercises including reaching across midline, weightbearing through affected arm in unsupported sitting. ASSESSMENT: Patient tolerates therapy well PLAN: Continue treatment per plan of care TREATMENT CODE/TIME: 41441 Ther Act 15 minutes, 36261 Neuro za 17 minutes beginning at 9:15
--- NOTE | 2022-06-24 16:57 | PTTR_ITS ---
Date of service: 06/24/22 Time of Service: 14:38 PT Notes Visit Reasons: CVA, HTN Inpatient Physical Therapy Treatment Note [facility] Date: 06/24/22 PRECAUTIONS: Fall, standard, activity as tolerated. SUBJECTIVE: patient does not wish to get out of bed. Patient understands that he has a swallow study scheduled and is agreeable to therapy. OBJECTIVE: PAIN: none reported BED MOBILITY/TRANSFERS Rolling L/R: min assist- max assist, variable based on fatigue. Supine-sit: Mod to max assist Sit-supine: Max assist Sit-stand: min assist with verbal cues Stand-sit: contact guard Bed-Chair: min to mod assist with verbal cues Chair-bed: min to mod assist with verbal cues GAIT? Assistive Device: chetan walker? Weight bearing: full Assist: cga to mod assist, with verbal and tactile cues, occasional assistance to move right leg.? Distance:? 20 feet? Deviation: Patient's right foot tends to stick to the floor, tends to lean to left and too far forward, continuous cues to stand up straight, keep device c lose to body, lock right knee. Right knee tends to give way if patient doesn't consciously lock it. ASUNCION RONNIE: Patient participates in seated and standing balance exercises including reaching across midline, weight shifting, bearing weight through affected arm and leg. ASSESSMENT: Patient reports being extremely fatigued. Resting comfortably in bed with affected arm elevated with pillows when therapist leaves, significant other and RN present in room. PLAN: Continue treatment per plan of care. Patient to discharge to [facility] on Monday. TREATMENT CODE/TIME: 27363 Ther Activ 30 minutes, 90902 Gait 24 minutes, 56954 Neuro Re ed 30 minutes beginning at 14:38
--- NOTE | 2022-06-24 17:08 | W.PM.PROGNOT ---
Date of Service Date of service: 06/24/22 Time of Service: 17:09 Assessment and Plan Assessment and plan (1) CVA (cerebral vascular accident): Start date: 06/21/22 Assessment and plan: MRI shows infarct of left medial Lisa. Modest Improvement in voluntary movement of RUE. TTE: EF 55%. Unable to assess for wall motion abnormalities due to technically limited images.? LA normal. Bubble not done Patient did have previous CVA symptoms with right facial and left foot numbness which did not persist and this occurred more than a decade ago in 2009. Neurology has evaluated. ASA, Plavix, high dose statin. PT/OT/Speech. Swallow study shows aspiration with thin liquids. Speech modifying liquids; already on moist minced. Accepted at [facility] and [facility]. Pt and family prefer [facility] d/t proximity to a relative that lives closer to there. Insurance approval pending. A1c 9.2. Will initiate tx and have para educator involved. Qualifiers: CVA mechanism: stenosis Precerebral and cerebral artery: middle cerebral artery Laterality of affected vessel: left Qualified Code(s): I63.512 - Cerebral infarction due to unspecified occlusion or stenosis of left middle cerebral artery (2) Hypertension: Status: Chronic Assessment and plan: Patient was hypertensive upon admission and allowed permissive hypertension but initiated on low-dose metoprolol to control systolic. At this point in time; normal BP control warranted. (3) Hyperlipidemia: Status: Chronic Assessment and plan: Patient was on moderate to low-dose statin therapy and this will be increased to high-dose statin therapy with atorvastatin 80 mg nightly. (4) Diabetes mellitus type 2 in obese: Status: Acute Assessment and plan: No previous dx of DM. A1c of 9.2 Initiate Januvia and metformin. Initiated Lantus 15units SQ at HS; adjust as needed. diabetic educator. Diabetic diet. Subjective Subjective Patient reports: no new complaints and afebrile; denies nausea, vomiting or shortness of breath Exam Narrative Exam Narrative: General: Awake. Cooperative. HEENT: sclera clear. Lungs: Clear to auscultation and percussion. Heart: Regular rate and rhythm with no murmurs Abdomen: Obese contour, soft and nontender Extremities: No edema, calf tenderness. Neuro: Dysarthria, right facial droop improved / subtle. right upper extremity 2 out of 5 strength with patient able to move against gravity only, right lower extremity with 3-4 out of 5 strength move against gravity and some resistance, left upper and lower extremity normal 5 out of 5 strength. No Babinski bilaterally. Psych: Flattened affect. No abnormal thought processes. . Objective Last Vital Signs Temp 36.7 C 06/24/22 16:10 Pulse 98 H 06/24/22 16:10 Resp 18 06/24/22 16:10 BP 123/89 06/24/22 16:10 Pulse Ox 95 06/24/22 16:10 Laboratory Results - last 24 hr 06/24/22 06:06 Sodium 140 Potassium 3.5 Chloride 105 Carbon Dioxide 25.6 Anion Gap 9.4 BUN 17 Creatinine 1.1 Est GFR (CKD-EPI 2020) 71.32 Glucose 235 H Calcium 9.8 Time Spent with Patient Time Spent with Patient: 25-34 minutes Time was spent: preparing to see the patient(eg.review tests), ordering medications,tests, procedures, indepentently interpreting results and counseling the patient
--- NOTE | 2022-06-24 17:20 | SPP_ITS ---
Date of service: 06/24/22 Time of Service: 17:20 Subjective Contacted patient at bedside following MBSS to provide education and initial instruction for oral-pharyngeal exercises. Objective/Assessment/Plan Objective Treatment Techniques & Outcomes: Education: Results, implications for pulmonary compromise, diet & risk management strategies as outlined below. Oral-Pharyngeal Strengthening Exercise: Demonstration provided for CTAR & Effortful Swallow Patient instructed to complete 30 reps 2x daily. GOALS Patient will tolerate safest/least restrictive diet of without s/sx aspiration. -see MBSS report Patient/caregiver will be independent with aspiration precautions, diet modifications, and safe swallowing strategies. -provided training as above Patient/Caregiver/Staff Education: Verbalized understanding. 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 See MBSS for further details. This treatment session focused on oral pharyngeal exercise training per MBSS results and education r/t MBSS results and recommendations for risk management. Plan Plan: TECHNOLOGY ADOPTION MANAGER to follow while on unit for oral-pharyngeal strengthening, diet tolerance monitoring. Recommendations Recommendations: 1:1 SUPERVISION Diet Texture Recommendation:? IDDSI LEVEL SOLIDS 5-Minced & Moist Solids ? LIQUIDS 2-Mildly Thick Liquids Please see further details at?www.iddsi.org http://www.iddsi.org/ MEDICATIONS Crushed, as able with 4-Puree and 2-Mildly Thick Liquid wash Diet texture modification is per patient's preference; please adjust diet textures at patient's discretion & collaboration with care team. Do not alter medications (e.g., cut)? without advice from your MD or pharmacist. Risk Management Strategies:? Behavioral reflux precautions, including upright position during + 90 mins after meals. Small bites, approx [id number] Very small sips, approx 5mL / teaspoon Alternate solids/liquids as able Multiple swallows per bolus to encourage clearance of pharyngeal stasis/residue Control risk factors for aspiration pneumonia via (a) thorough oral hygiene & (b) maintaining physical mobility as tolerated ORAL HYGIENE BID and BEFORE/AFTER PO INTAKE Total Time Spent: 25 minutes Coding Diagnoses CPT Codes ORAL FUNCTION THERAPY - [id number] ([id number])
[2022-06-24] MEDS: Atorvastatin 40 MG TAB 80 MG PO (20:09)
[2022-06-24] MEDS: Insulin Glargine 300 UNITS/3 ML PEN 15 UNITS SC (20:09)
[2022-06-25] VITALS (8 sets, daily range): BP systolic 124–147; BP diastolic 80–92; PULSE 69–100; RESP 16–20; TEMP 36.3–37.3; O2SAT 93–98
[2022-06-25] MEDS: Metoprolol 12.5 MG TAB PO ×4 (05:33→23:45)
[2022-06-25] MEDS: Insulin Aspart 300 UNITS/3 ML PEN SC ×3 (08:09→17:14)
[2022-06-25] MEDS: Aspirin 81 MG CHEW PO (08:10)
[2022-06-25] MEDS: Clopidogrel 75 MG TAB PO (08:10)
[2022-06-25] MEDS: Famotidine 20 MG TAB PO ×2 (08:10→20:26)
--- NOTE | 2022-06-25 12:43 | PTTR_ITS ---
PT Notes Visit Reasons: CVA, HTN Date: 06/25/22 PRECAUTIONS: Fall, standard, activity as tolerated. SUBJECTIVE: Pt in recliner when approached for therapy, pt agreed to participating with therapy session. OBJECTIVE: PAIN: none reported ? BED MOBILITY/TRANSFERS? Sit-stand: min assist with verbal cues ? Stand-sit: contact guard? Chair-bed: min assist with verbal cues Rolling L/R: min assist Supine-sit: Min assist? Sit-supine: Min assist ? GAIT? Assistive Device: chetan walker? Weight bearing: full Assist: cga to mod assist, with verbal and tactile cues, occasional assistance to move right leg.? Distance:? 10'x2 ? Deviation: decreased step height and length on the right LE, decreased right arm swing, circumduction on right hip to clear right LE ? Neuro Re-education [id number] 38mins: to improve balance, coordination, kinesthetic and proprioceptive sensations. Treatment: Gait training utilizing plinth to provide stable surface for right arm lean to improve propriceptive sensations, sit to stand using handrails with cue for gluteal setting and terminal knee extensions, standing balance activity utilizing bilateral handrail performing weight shifting activity, trunk rotation /deviation activity and reaching beyond midline using affected arm and leg. ? ASSESSMENT:? Pt report feeling exhausted after session, pt still able to participate with bed mobility moving upwards inn bed, pt situated in bed for proper alignment, comfort and safety post session. PLAN: Continue treatment per plan of care. Patient to discharge to [facility] on Monday. TREATMENT CODE/TIME: 31735 Neuro Re ed 38 minutes beginning at 10:00-10:38am
--- NOTE | 2022-06-25 15:00 | W.PM.PROGNOT ---
Date of Service Date of service: 06/25/22 Time of Service: 15:00 Assessment and Plan Assessment and plan (1) CVA (cerebral vascular accident): Start date: 06/21/22 Assessment and plan: MRI shows infarct of left medial Lisa. Modest Improvement in voluntary movement of RUE. TTE: EF 55%. Unable to assess for wall motion abnormalities due to technically limited images.? LA normal. Bubble not done Patient did have previous CVA symptoms with right facial and left foot numbness which did not persist and this occurred more than a decade ago in 2009. Neurology has evaluated. ASA, Plavix, high dose statin. PT/OT/Speech. Swallow study shows aspiration with thin liquids. Speech modifying liquids; already on moist minced. Accepted at [facility]. Pt and family prefer [facility] d/t proximity to a relative that lives closer to there. Insurance approval pending. A1c 9.2. Will initiate tx and have nursing educator involved. Qualifiers: CVA mechanism: stenosis Precerebral and cerebral artery: middle cerebral artery Laterality of affected vessel: left Qualified Code(s): I63.512 - Cerebral infarction due to unspecified occlusion or stenosis of left middle cerebral artery (2) Hypertension: Status: Chronic Assessment and plan: Patient was hypertensive upon admission and allowed permissive hypertension but initiated on low-dose metoprolol to control systolic. At this point in time; normal BP control warranted. (3) Hyperlipidemia: Status: Chronic Assessment and plan: Patient was on moderate to low-dose statin therapy and this will be increased to high-dose statin therapy with atorvastatin 80 mg nightly. (4) Diabetes mellitus type 2 in obese: Status: Acute Assessment and plan: No previous dx of DM. A1c of 9.2 Initiate Januvia and metformin. Initiated Lantus 15units SQ at HS; adjust as needed. nursing educator. Diabetic diet. Subjective Subjective Patient reports: no new complaints and afebrile; denies shortness of breath Exam Narrative Exam Narrative: General: Awake. Cooperative. Sitting in chair. HEENT: sclera clear. Lungs: Clear to auscultation and percussion. Heart: Regular rate and rhythm with no murmurs Extremities: No edema, calf tenderness. Neuro: Dysarthria, right facial droop improved / subtle. right upper extremity 2 out of 5 strength with patient able to move against gravity only, right lower extremity with 3-4 out of 5 strength move against gravity and some resistance, left upper and lower extremity normal 5 out of 5 strength. No Babinski bilaterally. Psych: Flattened affect. No abnormal thought processes. . Objective Last Vital Signs Temp 36.4 C L 06/25/22 11:37 Pulse 98 H 06/25/22 12:21 Resp 18 06/25/22 11:37 BP 147/89 H 06/25/22 11:37 Pulse Ox 95 06/25/22 11:37 Time Spent with Patient Time Spent with Patient: 25-34 minutes Time was spent: preparing to see the patient(eg.review tests), ordering medications,tests, procedures, referring, communicating with other health healthcare advisory services manager, indepentently interpreting results and counseling the patient
[2022-06-25] MEDS: Atorvastatin 40 MG TAB 80 MG PO (20:26)
[2022-06-25] MEDS: Insulin Glargine 300 UNITS/3 ML PEN 25 UNITS SC (20:26)
[2022-06-26 03:07] VITALS: BP 136/90; PULSE 101; RESP 20; TEMP 37.2; O2SAT 93
[2022-06-26] MEDS: Metoprolol 12.5 MG TAB PO ×4 (06:11→23:14)
[2022-06-26 06:41] VITALS: BP 117/84; PULSE 98; RESP 20; TEMP 36.8; O2SAT 96
[2022-06-26] MEDS: Clopidogrel 75 MG TAB PO (08:06)
[2022-06-26] MEDS: Famotidine 20 MG TAB PO (08:06)
[2022-06-26] MEDS: Aspirin 81 MG CHEW PO (08:06)
[2022-06-26] MEDS: Insulin Aspart 300 UNITS/3 ML PEN SC ×3 (08:07→17:11)
--- NOTE | 2022-06-26 10:04 | PGE_ITS ---
Date of Service Date of service: 06/26/22 Time of Service: 10:04 Assessment and Plan Assessment and plan (1) CVA (cerebral vascular accident): Start date: 06/21/22 Assessment and plan: MRI shows infarct of left medial Lisa. Modest Improvement in voluntary movement of RUE. TTE: EF 55%. Unable to assess for wall motion abnormalities due to technically limited images.? LA normal. Bubble not done Patient did have previous CVA symptoms with right facial and left foot numbness which did not persist and this occurred more than a decade ago in 2009. Neurology has evaluated. ASA, Plavix, high dose statin. PT/OT/Speech. Swallow study shows aspiration with thin liquids. Speech modifying liquids; already on moist minced. Accepted at [facility]. Pt and family prefer [facility] d/t proximity to a relative that lives closer to there. Insurance approval pending. A1c 9.2. Will initiate tx and have religious educator involved. Qualifiers: CVA mechanism: stenosis Precerebral and cerebral artery: middle cere bral artery Laterality of affected vessel: left Qualified Code(s): I63.512 - Cerebral infarction due to unspecified occlusion or stenosis of left middle cerebral artery (2) Hypertension: Status: Chronic Assessment and plan: Patient was hypertensive upon admission and allowed permissive hypertension but initiated on low-dose metoprolol to control systolic. At this point in time; normal BP control warranted. (3) Hyperlipidemia: Status: Chronic Assessment and plan: Patient was on moderate to low-dose statin therapy and this will be increased to high-dose statin therapy with atorvastatin 80 mg nightly. (4) Diabetes mellitus type 2 in obese: Status: Acute Assessment and plan: No previous dx of DM. A1c of 9.2 Initiate Januvia and metformin. Initiated Lantus 15units SQ at HS; now adjusted to 30 units QHS. 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 Diabetic diet. Subjective Subjective Patient reports: shortness of breath and afebrile; denies nausea or vomiting Interval history since last seen: Several loose stools since yesterday. No melena, hematochezia. Tolerating his diet, including the mildly thickened liquids. Exam Narrative Exam Narrative: General: Awake. Cooperative. Lying in bed. Significant other present. HEENT: sclera clear. Lungs: Clear to auscultation and percussion. Heart: Regular rate and rhythm with no murmurs Extremities: No edema, calf tenderness. Neuro: Dysarthria, right facial droop improved / subtle. right upper extremity 2 out of 5 strength with patient able to move against gravity only, right lower extremity with 3-4 out of 5 strength move against gravity and some resistance, left upper and lower extremity normal 5 out of 5 strength. No Babinski bilaterally. Psych: Flattened affect. No abnormal thought processes. Objective Last Vital Signs Temp 36.8 C 06/26/22 06:41 Pulse 98 H 06/26/22 06:41 Resp 20 06/26/22 06:41 BP 117/84 06/26/22 06:41 Pulse Ox 96 06/26/22 06:41 Time Spent with Patient Time Spent with Patient: 25-34 minutes Time was spent: preparing to see the patient(eg.review tests), ordering medications,tests, procedures, referring, communicating with other health career development consultant and indepentently interpreting results
--- NOTE | 2022-06-26 13:59 | PTTR_ITS ---
PT Notes Visit Reasons: CVA, HTN Date: 06/26/22 PRECAUTIONS: Fall, standard, activity as tolerated. SUBJECTIVE: Pt in bed when approached for therapy, pt agreed to participating with therapy session. OBJECTIVE: PAIN: none reported ? BED MOBILITY/TRANSFERS? Rolling L/R: min assist Supine-sit: Min assist? Sit-supine: Min assist ? Chair-bed: min assist with verbal cues? Sit-stand: min assist with verbal cues ? Stand-sit: contact guard? GAIT? Assistive Device: chetan walker? Weight bearing: full Assist: cga to mod assist, with verbal and tactile cues, occasional assistance to move right leg.? Distance:? 10'? Deviation: decreased step height and length on the right LE, decreased right arm swing, circumduction on right hip to clear right LE ? Neuro Re-education [id number]: to improve balance, coordination, kinesthetic and proprioceptive sensations. Treatment: plinth elevated to highest position, pt able to perform standing activity while leaning forward with weight on bilateral forearm, slight shoulder flexion with perpendicular pounding on right shoulder to stimulate proprioceptive sensations, pt able to perform initiation of marching in place, trunk rotation, lateral deviation, anterior posterior pelvic rock, circumduction, heel raises, standing thoracic extension Sit to stand from to [facility] [id number] with cue for gluuteal sets upon standing and reaching behind to reach for arm rest to avoid flopping in chair. stand pivot transfer going back to bed min A, bed mobility getting properly situated tactile cue. ? ASSESSMENT:? Pt very busy today, multiple family members present to visit pt, pt also having LBM requiring multiple times standing and static standing to allow for perimeal care/cleaning. initial approched pt was able to transfer from bed to recliner, second approach pt able to sit to stand from recliner to allow for cleaning perinium, third approach pt able to work in gym. pt reports feeling exhausted post session. PLAN: Continue treatment per plan of care. Patient to discharge to [facility] on Monday. TREATMENT CODE/TIME: [id number] Neuro Re ed 60 minutes beginning at 12:00-1:40am
[2022-06-26 14:48] VITALS: BP 128/87; PULSE 105; RESP 18; TEMP 36.7; O2SAT 94
[2022-06-26] MEDS: Atorvastatin 40 MG TAB 80 MG PO (19:55)
[2022-06-26 20:07] VITALS: BP 152/80; PULSE 100; RESP 16; TEMP 37.2; O2SAT 95
[2022-06-26] MEDS: Insulin Glargine 300 UNITS/3 ML PEN 30 UNITS SC (21:30)
[2022-06-26 23:14] VITALS: BP 117/87; PULSE 107; RESP 15; TEMP 36.7; O2SAT 95
[2022-06-27 03:12] VITALS: BP 124/81; PULSE 88; RESP 15; TEMP 36.9; O2SAT 94
[2022-06-27] MEDS: Metoprolol 12.5 MG TAB PO ×2 (06:02→11:59)
[2022-06-27 07:09] LABS: Anion Gap 11.6 mmol/L (3-11); BUN 21 mg/dL (7-18); CO2 25.4 mmol/L (21.0-32.0); CREATININE 1.1 mg/dL (0.70-1.30); Calcium 9.7 mg/dL (8.5-10.1); Chloride 105 mmol/L (98-107); Estimated GFR 71.32 (mL/min/1.73m2); Glucose 230 mg/dL (74-106); Potassium 3.4 mmol/L (3.5-5.1); Sodium 142 mmol/L (136-145)
[2022-06-27 07:48] VITALS: BP 163/100; PULSE 92; RESP 18; TEMP 36.8; O2SAT 95
[2022-06-27] MEDS: Aspirin 81 MG CHEW PO (08:50)
[2022-06-27] MEDS: Clopidogrel 75 MG TAB PO (08:50)
[2022-06-27] MEDS: Insulin Aspart 300 UNITS/3 ML PEN SC ×2 (08:50→11:59)
[2022-06-27 11:47] VITALS: BP 156/94; PULSE 92; RESP 18; TEMP 36.7; O2SAT 96
[2022-06-27] MEDS: Potassium Chloride 20 MEQ TABCR 40 MEQ PO (11:58)
--- NOTE | 2022-06-27 12:54 | W.PM.DS.N ---
Date of service: 06/27/22 Time of Service: 12:54 DS: Diagnosis Discharge Diagnosis (1) CVA (cerebral vascular accident): (2) Hypertension: Status: Chronic (3) Hyperlipidemia: Status: Chronic (4) Diabetes mellitus type 2 in obese: Status: Acute Discharge Plan Disposition Patient Disposition: Snf Facility(SNF) Condition: Improving Discharge Details Reason For Visit: CVA, HTN Admit Date/Time: 06/22/22 01:00 Admit Provider: Tony Caldwell Attending Provider: Tony Caldwell Primary Care Provider: Jonathan Gonsalez Hospital Course Hospital Course: This is a 71-year-old male with past medical history of HTN, HLD, prior stroke x 2,one in 2009 manifested by vertigo and face weakness.? MRI showed an acute infart in the right inferior cerebellar peduncle. He had another stroke in 2017 that was worked up outpatient - manifested by right hemiparesis. MRI of the brain showed a L medial pontine stroke as well as a small mass.? He was referred to [facility] and [facility] [place] never went to either/followed-up.? He fully recovered from both of those strokes. On 06/22/2022 he presented to the [facility] ED accompanied by his partner of 20 years with acute onset of right-sided weakness and slurred speech with the partner finding him around 7 PM the evening prior to admission. The ED physician documented that the symptoms were 4.5 hours out from onset upon presentation, outside the window of treatment.? The patient was hypertensive and chronically was on amlodipine and had no other complaints other than right facial droop with his right arm weakness and some speech difficulties. CTA of the brain and neck did reveal 50% stenosis of the left internal carotid artery with plaque with no intracranial arterial circulation occlusions of the large vessels.? CT of the head was not performed with MRI planned.? Patient was given a loading dose of aspirin and symptoms were stable with persistence of deficits.? He denied any headache.? He denied any falls or recent bleeding episodes? He did have persistent deficits consistent with a left middle cerebral artery circulation CVA with some facial involvement which may be some deeper circulation.? He was diagnosed with an acute L medial pontine ischemic stroke manifested by right hemiparesis, dysarthria, and dysphagia, secondary to small vessel disease.? He is a full code. .? Patient was admitted for further evaluation and rehabilitation.? Patient was evaluated by neurology, physical therapy, occupational therapy and speech therapy. He was started on Aspirin 81mg daily for secondary stroke prevention indefinitely, Clopidogrel 75mg daily for secondary stroke prevention x 30 days and Atorvastatin 80mg daily for secondary stroke prevention for goal LDL <70. His glucose levels have been elevated during his hospitalization, 200-300 mg/dl, with A1C of 9.2 (No previous A1C) and he has been receiving insulin.? The last glucose we have is from 2017 and it was 120s. He was seen by speech therapy and thickened liquids and minced and moist solids were recommended. Medications should be crushed as able with 4-puree and 2-mildly thick liquid wash. Patient is at moderate risk for potential aspiration pneumonia, and low risk for malnutrition and dehydration. Patient is being transferred for acute rehab, stable. Discussed with Dr Rose. Home Meds and New Rx's Prescriptions: New aspirin [Children's Aspirin] 81 mg Tablet,Chewable 81 mg PO DAILY Qty: 0 0RF atorvastatin 40 mg Tablet 80 mg PO QPM Qty: 0 0RF clopidogrel 75 mg Tablet 75 mg PO DAILY Qty: 0 0RF insulin glargine [Lantus Solostar U-100 Insulin] 100 unit/mL (3 mL) Insulin Pen 30 units subcut HS Qty: 0 0RF potassium chloride [Klor-Con M20] 20 mEq Tablet,Er Particles/Crystals 40 meq PO BID Qty: 0 0RF metoprolol tartrate 25 mg Tablet 12.5 mg PO Q6H Qty: 0 0RF Continued amlodipine 5 mg tablet 5 mg PO DAILY Qty: 90 4RF Discontinued sildenafil [Viagra] 50 mg tablet 50 mg PO DAILY PRN (Reason: sexual activity) Qty: 2 5RF Rx Instructions: administer 30 minutes to 4 hours before activity simvastatin 10 mg tablet 10 mg PO QHS Qty: 90 3RF Discharge Instructions Activity:: Activity as Tolerated Equipment/Supplies:: No Equipment Needed Diet:: Carb Counting Discharge Orders Discharge Orders: Discharge Order (Routine); Ordered 06/27/22 Ordered By: Emili Vanegas DS: Summary Time Spent with Patient providing and/or coordinating discharge services: Greater than 30 minutes Status at Discharge Functional status at discharge: uses cane/walker Overall status at discharge: patient is progressing back to baseline Mental Status: mental status grossly normal Speech and Movement: delayed speech, slowed movement and slurred speech Mood: congruent mood Affect: normal affect Exam Narrative Exam Narrative: General: Awake. Cooperative. Lying in bed. Significant other present. HEENT: sclera clear. Lungs: Clear to auscultation and percussion. Heart: Regular rate and rhythm with no murmurs Extremities: No edema, calf tenderness. Neuro: Dysarthria, right facial droop improved / subtle. right upper extremity 2 out of 5 strength with patient able to move against gravity only, right lower extremity with 3-4 out of 5 strength move against gravity and some resistance, left upper and lower extremity normal 5 out of 5 strength. No Babinski bilaterally. Psych: Flattened affect. No abnormal thought processes. Psych Mental Status: mental status grossly normal Speech and Movement: delayed speech, slowed movement and slurred speech Mood: congruent mood Affect: normal affect DS: Data Vitals/I&O Vitals and I&O: Vital Signs Temperature 36.7 C 06/27/22 11:47 Temperature Source Tympanic 06/27/22 11:47 Pulse 92 H 06/27/22 11:47 Pulse Rhythm Regular 06/27/22 09:50 Pulse 106 H 06/22/22 01:50 Respiratory Rate 18 06/27/22 11:47 Respiratory Effort Normal 06/27/22 09:50 Respiratory Depth Normal 06/27/22 09:50 Respiratory Pattern Normal 06/27/22 09:50 Blood Pressure 156/94 H 06/27/22 11:47 Blood Pressure Mean 130 06/22/22 01:47 Blood Pressure Position Sitting 06/21/22 23:23 Pulse Oximetry 96 06/27/22 11:47 Oxygen Delivery Method Room Air 06/27/22 11:47 Oxygen Flow Rate 0 06/27/22 11:47 Pain Level 0 06/27/22 03:12 Comment Rn informed of bp 06/27/22 11:47 Intake & Output 06/26/22 06/27/22 06/27/22 23:59 11:59 23:59 Intake Total 100 / 100 Output Total 200 / 750 200 / 200 Balance -100 / -650 -200 / -200 Intake: Oral 100 / 100 Output: Urine 200 / 750 200 / 200 Other: Urine Color Yellow Yellow Urine Appearance Clear Clear Comment condom catheter in commode/ mixed with stool Stool Size Smear Moderate Stool Characteristics Liquid Soft Brown Voiding Methods Bedside Commode Data Completed and Pending Labs on day of discharge: Labs from last 24 hours 06/27/22 06:12 Sodium 142 Potassium 3.4 L Chloride 105 Carbon Dioxide 25.4 Anion Gap 11.6 H BUN 21 H Creatinine 1.1 Est GFR (CKD-EPI 2020) 71.32 Glucose 230 H Calcium 9.7 Imaging MRI - head: Radiologist's impression: EXAM: ? MR BRAIN WO CLINICAL HISTORY:? Right hemiparesis with speech hestancy, acute TECHNIQUE:? Multiplanar multisequence MRI of the brain was performed. COMPARISON:? CT CT BRAIN ? NECK CTA from 06/21/2022 FINDINGS: VENTRICLES AND EXTRA AXIAL SPACES: Normal in size and morphology for the patient's age. MIDLINE SHIFT: None. CEREBRAL PARENCHYMA: There are areas of hyperintense signal in the white matter on the FLAIR and T2 weighted images consistent with small vessel ischemic disease.? There is an area of restricted diffusion to the left of the midline in the sammie.? This is consistent with a acute infarct.? No space-occupying lesion identified. HEMORRHAGE: None. BRAINSTEM/CEREBELLUM: Please see above under cerebral parenchyma.? CALVARIUM: Normal.? VISUALIZED PARANASAL SINUSES/MASTOIDS:There is some fluid seen in the right mastoid air cells.? The remaining visualized paranasal sinuses and left mastoid air cells are clear.? [place]: Normal flow void. PITUITARY GLAND: Unremarkable. OTHER FINDINGS: None. IMPRESSION: 1. Area of restricted diffusion to the left of midline in the sammie consistent with an acute infarct. 2. Age-related cerebral atrophy and small vessel ischemic disease. 3. Findings were discussed with the Emili Vanegas NP at 11:29 a.m. on 06/22/2022. CTA head with contrast Exam(s) PROCEDURE INFORMATION: Exam: CTA Head With Contrast, Arteriography Exam date and time: 06/21/2022 11:37 PM Age: 71 years old Clinical indication: Stroke-like symptoms; Speech disturbance; Other: Righy weakness; Additional info: ? CVA, right sided weakness TECHNIQUE: Imaging protocol: Computed tomographic angiography of the head with contrast. Exam focused on the arteries. 3D rendering (Not supervised by radiologist): MIP and/or 3D reconstructed images were created by the technologist. Radiation optimization: All CT scans at this facility use at least one of these dose optimization techniques: automated exposure control; mA and/or kV adjustment per patient size (includes targeted exams where dose is matched to clinical indication); or iterative reconstruction. Contrast material: OMNIPAQUE 350; Contrast volume: 85 ml; Contrast route: INTRAVENOUS (IV);? COMPARISON: MRI - BRAIN W/WO CONTRAST 11/30/2016 3:22 PM FINDINGS: ANTERIOR CIRCULATION: Right internal carotid artery: Intracranial segment is patent with no significant stenosis. No aneurysm. Right middle cerebral artery: No occlusion or significant stenosis. No aneurysm.? Right anterior cerebral artery: No occlusion or significant stenosis. No aneurysm.? Left internal carotid artery: Intracranial segment is patent with no significant stenosis. No aneurysm. Left middle cerebral artery: No occlusion or significant stenosis. No aneurysm. ? Left anterior cerebral artery: No occlusion or significant stenosis. No aneurysm.? POSTERIOR CIRCULATION: Right vertebral artery: Mild to moderate stenosis of right vertebral artery by calcified/noncalcified plaque. Left vertebral artery: Left vertebral artery ends in PICA. Basilar artery: No occlusion or significant stenosis. No aneurysm. Right posterior cerebral artery: origin of the right posterior cerebral artery. Left posterior cerebral artery: No occlusion or significant stenosis. No aneurysm.? Brain: There are moderate periventricular and subcortical lucencies consistent with chronic microvascular ischemic changes. Cerebral ventricles: No ventriculomegaly. Bones/joints: Unremarkable. No acute fracture. Soft tissues: Unremarkable. IMPRESSION: No significant stenosis or occlusion of intracranial arteries. Exam(s) CT BRAIN ? NECK CTA EXAM: ? CT BRAIN ? NECK CTA CLINICAL HISTORY: ? ?cva, right sided weakness. ? TECHNIQUE:? Imaging Protocol:? Axial CT angiography was performed with multi-slice acquisition and multi-planar and/or 3D reconstructions. CONTRAST MATERIAL:? Intravenous: Omnipaque 350 contrast volume:85 mL COMPARISON:? CT HEAD WITHOUT CONTRAST from 09/03/2009 CT HEAD WITHOUT CONTRAST from 09/05/2009 FINDINGS: CT Head W/O and W: Ventricles and Extra axial spaces: Normal in size and morphology for the patient's age. Hemorrhage: None. Cerebral parenchyma: There is no evidence of an acute territorial infarct.? There are areas of decreased attenuation in the white matter consistent with small vessel ischemic disease.? There are lacunar infarct seen in the right basal ganglia.? Midline shift: None. Brainstem/Cerebellum: Normal. Calvarium: Normal. Visualized Paranasal sinuses/Mastoids: Clear. Soft Tissues: Unremarkable. Enhancement: Unremarkable.? CTA Neck W: Common Carotid: Right:? No dissection, occlusion or significant stenosis. Mild atherosclerosis. Left:? No dissection, occlusion or significant stenosis. External Carotid: Right:? No occlusion or significant stenosis. Left:? No occlusion or significant stenosis. Internal Carotid: Right:? No dissection, occlusion or significant stenosis. Atherosclerosis at the origin. Left:? No dissection or occlusion.? There is approximately 50 percent stenosis at the origin of the left internal carotid artery secondary to calcified and noncalcified plaque.? Atherosclerosis at the origin. Vertebral Artery: Right:? No dissection, occlusion or significant stenosis. Left:? No dissection, occlusion or significant stenosis. Lung Apices: Normal. Bones: Within normal limits for the patient's age. Soft Tissues: Normal. Thyroid gland: Unremarkable. CTA Brain W: Internal Carotid Arteries: Atherosclerosis bilaterally.? Mild narrowing of the left internal carotid artery.? No aneurysm, occlusion or significant stenosis.? Anterior Cerebral Arteries: Right:? No aneurysm, occlusion or significant stenosis. Left:? No aneurysm, occlusion or significant stenosis. Middle Cerebral Arteries: Right:? No aneurysm, occlusion or significant stenosis. Left:? No aneurysm, occlusion or significant stenosis. Posterior Cerebral Arteries: Right:? No aneurysm, occlusion or significant stenosis. There is a origin of the right posterior cerebral artery. Left:? No aneurysm, occlusion or significant stenosis. Vertebral Arteries: Right:? No aneurysm or occlusion.? [id number] stenosis of the right distal vertebral artery by calcified and noncalcified plaque.? Left:? The left vertebral artery in at the PICA.? Basilar Artery:? No aneurysm, occlusion or significant stenosis. IMPRESSION: 1. No significant large vessel stenosis or occlusion on the CT angiography of the head.? 2. No acute intracranial process.? 3. Approximately 50 percent stenosis at the origin of the left internal carotid artery due to plaque.? RADIATION DOSE DELIVERED:? 2,301.86mGy.cm Total DLP DATA REPOSITORY:? All CT scans at this facility are submitted to the National Radiology Data Registry (NRDR) Dose Index Registry (DIR) with the [employer] (ACR). RADIATION OPTIMIZATION:? All CT scans at this facility use at least one of these dose optimization techniques: automated exposure control; mA and/or kV adjustment per patient size (includes targeted exams where dose is matched to clinical indication); or iterative reconstruction. Echocardiogram Interpretation summary Very technically difficult study. Left ventricular systolic function is probably normal. Left ventricular ejection fraction is estimated visually at 55% weight. Unable to assess regional wall motion due to technically limited images. The right ventricle is not well visualized. The right ventricle is of normal size. Right ventricular systolic function is normal. There is aortic valve sclerosis without stenosis. Consider repeat echo with contrast. No comparison study is available. CXR Exam(s) PROCEDURE INFORMATION: Exam: XR Chest Exam date and time: 06/21/2022 11:56 PM Age: 71 years old Clinical indication: Other: R sided weakness; Patient HX: CVA TECHNIQUE: Imaging protocol: Radiologic exam of the chest. Views: 1 view. COMPARISON: CT BRAIN NECK CTA 06/21/2022 11:37 PM FINDINGS: Lungs: Unremarkable. No consolidation. Pleural spaces: Unremarkable. No pleural effusion. No pneumothorax. Heart/Mediastinum: Cardiomegaly. Bones/joints: Unremarkable. IMPRESSION: No acute abnormality. Lab and Radiology Reports: Laboratory Results WBC 7.32 10^3/uL (4.4-10.8) 06/22/22 06:15 RBC 4.85 10^6/uL (4.36-5.78) 06/22/22 06:15 Hgb 14.7 g/dL (13.5-17.5) 06/22/22 06:15 Hct 43.5 % (40.0-50.0) 06/22/22 06:15 MCV 90 fL (80-95) 06/22/22 06:15 MCH 30.3 pg (27.0-33.0) 06/22/22 06:15 MCHC 33.8 % (32.0-36.0) 06/22/22 06:15 RDW 13.1 % (11.8-14.1) 06/22/22 06:15 Plt Count 269 10^3/uL (130-400) 06/22/22 06:15 MPV 9.9 fL (8.0-11.0) 06/22/22 06:15 Immature Gran % 0.5 06/21/22 23:27 Neutrophils % 68.0 06/21/22 23:27 Lymphocytes % 21.9 06/21/22 23:27 Monocytes % 7.4 06/21/22 23:27 Eosinophils % 1.6 06/21/22 23: Basophils % 0.6 06/21/22 23: Nucleated RBC % 0.0 % (0.0-0.3) 06/21/22 23: Absolute Neutrophils 5.26 10^3/uL (1.2-6.7) 06/21/22 23: Absolute Lymphocytes 1.69 10^3/uL (1.2-3.4) 06/21/22 23: Absolute Monocytes 0.57 10^3/uL (0.1-0.8) 06/21/22 23: Absolute Eosinophils 0.12 10^3/uL (0.0-0.7) 06/21/22: Absolute Basophils 0.05 10^3/uL (0.0-0.2) 06/21/22: PT 9.6 sec (9.3-11.0) 06/21/22: INR 0.9 (0.9-1.1) 06/21/22 23: APTT 26.1 sec (21.5-31.9) 06/21/22 23:27 Sodium 142 mmol/L (136-145) 06/27/22 06:12 Potassium 3.4 mmol/L (3.5-5.1) L 06/27/22 06:12 Chloride 105 mmol/L (98-107) 06/27/22 06:12 Carbon Dioxide 25.4 mmol/L (21.0-32.0) 06/27/22 06:12 Anion Gap 11.6 mmol/L (3-11) H 06/27/22 06:12 BUN 21 mg/dL (7-18) H 06/27/22 06:12 Creatinine 1.1 mg/dL (0.70-1.30) 06/27/22 06:12 Est GFR (CKD-EPI 2020) 71.32 (mL/min/1.73m2) 06/27/22 06:12 Glucose 230 mg/dL (74-106) H 06/27/22 06:12 Hemoglobin A1c 9.2 % (<5.7) H 06/22/22 06:15 Calcium 9.7 mg/dL (8.5-10.1) 06/27/22 06:12 Magnesium 2.0 mg/dL (1.8-2.4) 06/22/22 06:15 Total Bilirubin 0.7 mg/dL (0.2-1.0) 06/22/22 06:15 AST 20 U/L (15-37) 06/22/22 06:15 ALT 25 U/L (16-63) 06/22/22 06:15 Alkaline Phosphatase 97 U/L (46-116) 06/22/22 06:15 Troponin I < 50 ng/L (<or=60) 06/22/22 04:05 Total Protein 7.3 g/dL (6.4-8.2) 06/22/22 06:15 Albumin 3.2 g/dL (3.4-5.0) L 06/22/22 06:15 Triglycerides 241 mg/dL (<150) H 06/23/22 06:08 Total Cholesterol 203 mg/dL (<200) H 06/23/22 06:08 LDL Cholesterol, Calc 122 mg/dL (<100) H 06/23/22 06:08 HDL Cholesterol 33 mg/dL (40-60) L 06/23/22 06:08 TSH 6.86 uIU/mL (0.36-3.74) H 06/21/22 23:27 Free T4 0.95 ng/dL (0.76-1.46) 06/21/22 23:27 Urine Color Yellow (Yellow) 06/22/22 01:50 Urine Clarity Clear (Clear) 06/22/22 01:50 Urine pH 5.5 (5-8) 06/22/22 01:50 Ur Specific [place] 1.010 (1.005-1.025) 06/22/22 01:50 Urine Protein Negative mg/dL (Negative) 06/22/22 01:50 Urine Ketones Trace mg/dL (Negative) H 06/22/22 01:50 Urine Blood Moderate (Negative) H 06/22/22 01:50 Urine Nitrite Negative (Negative) 06/22/22 01:50 Urine Bilirubin Negative (Negative) 06/22/22 01:50 Urine Urobilinogen 0.2 mg/dL (Up to 0.2) 06/22/22 01:50 Ur Leukocyte Esterase Negative (Negative) 06/22/22 01:50 Urine RBC 10-20 HPF (0-2) H 06/22/22 01:50 Urine WBC 0-2 HPF (0-5) 06/22/22 01:50 Ur Epithelial Cells Rare HPF (Negative) 06/22/22 01:50 Urine Crystals Negative HPF (Negative) 06/22/22 01:50 Urine Bacteria Rare HPF (Negative) 06/22/22 01:50 Urine Mucus Negative (Negative) 06/22/22 01:50 Ur Culture Indicated? No 06/22/22 01:50 Urine Glucose >=1000 mg/dL (Negative) H 06/22/22 01:50 Urine Opiates Screen Negative (Negative) 06/22/22 01:50 Urine Methadone Screen Negative (Negative) 06/22/22 01:50 Ur Barbiturates Screen Negative (Negative) 06/22/22 01:50 Ur Tricyclics Screen Negative (Negative) 06/22/22 01:50 Ur Amphetamines Screen Negative (Negative) 06/22/22 01:50 U Benzodiazepines Scrn Negative (Negative) 06/22/22 01:50 Urine Cocaine Screen Negative (Negative) 06/22/22 01:50 Ur THC Screen Negative (Negative) 06/22/22 01:50 Ethyl Alcohol < 3.0 mg/dL (<10) 06/21/22 23:27 COVID-19 Source Nasopharynx 06/21/22 23:29 SARS-CoV-2 (PCR) Negative (Negative) 06/21/22 23:29 Add-On Test Request DONE 06/22/22 06:15 PFSH All Active Problems (Updated 06/23/22 @ 15:45 by Brennan Ramirez MD) Diabetes mellitus type 2 in obese (Acute) Dysphagia (Acute) Dysarthria (Acute) Acute stroke due to ischemia (Acute) Hyperlipidemia (Chronic) Right sided weakness (Acute) Elevated TSH (Acute) Daytime sleepiness (Acute) Low back pain (Chronic) Diarrhea (Acute) Urinary frequency (Acute) Fatigue (Chronic) Hypertension (Chronic) Numbness of left foot (Acute) Medical History CVA (cerebral vascular accident) 2009 Social History Smoking/Tobacco Use Status: Former Tobacco Use tobacco type: cigarettes Quit Date: 02/20/79 Second Hand Exposure: No Smoking risk assessment performed?: Yes Alcohol Intake: never Drug use: Never Substance use type: does not use Household members: significant other Housing: house Communication Needs: Hard of Hearing Do you need help understanding health information?: Often Pets and animals: Yes Pets and animals: cat(s) Sexually active: No Do you think of yourself as: straight/heterosexual Current gender identity: male What is your relationship status?: living with partner How often do you talk on the phone with friends or family?: decline to answer How often do you get together with friends or relatives?: decline to answer How often do you attend samaritan or jewish services?: decline to answer Do you belong to any clubs or organized social groups?: decline to answer Panel score (0-1 are the most socially isolated patients): 1 What type of physical activity do you participate in: walking Duration: < 15 minutes/day Frequency: daily Brielle/Jewish: No preference Special brielle needs: No Seatbelt use: sometimes Helmet use: Yes Helmet use: always Drive intox or ride w/intox deliver driver: No Time Spent with Patient Time Spent with Patient: 70-84 minutes4 Time was spent: preparing to see the patient(eg.review tests), ordering medications,tests, procedures, referring, communicating with other health manager home healthcare, indepentently interpreting results, counseling the patient and care coordination
--- NOTE | 2022-06-27 13:34 | PTTR_ITS ---
Date of service: 06/27/22 Time of Service: 11:46 PT Notes Visit Reasons: CVA, HTN Inpatient Physical Therapy Treatment Note [facility] Date: 06/27/22 PRECAUTIONS: Fall. Standard. Activity as tolerated. SUBJECTIVE: Patient reports feeling ok. Supine in bed, agreeable to therapy. OBJECTIVE: PAIN: none reported BED MOBILITY/TRANSFERS Rolling L/R: Min assist with verbal cues Supine-sit: Mod assist with verbal and tactile cues Sit-supine: not assessed Sit-stand: CGA Stand-sit: CGA with verbal cue to reach back for the chair Bed-Chair: min assist with verbal cues Chair-bed: min assist with verbal cues GAIT Assistive Device: chetan walker Weight bearing: full Assist: CGA, occasional assist to move Right LE Distance: 8 feet Deviation: Reduced swing through, reduced step height, noticeable foot drop right side, pronounced lean to the left. ASSESSMENT: Patient tolerated therapy well, resting comfortably in the recliner at end of treatment. PLAN: Discharging today to [facility] via private vehicle. TREATMENT CODE/TIME: 35528 Gait 13 minutes starting at 11:46 am.
--- NOTE | 2022-06-27 13:46 | SPP_ITS ---
Date of service: 06/27/22 Time of Service: 13:46 Subjective Contacted patient at bedside prior to discharge. He was lying reclined with his partner Anahi present. Per nursing, he stopped accepting thickened liquids this morning and will only drink thin liquids. Reports continued coughing with thin liquids. He and Anahi report that they did do oral-pharyngeal exercises over the weekend as instructed and noted some improvement with use of effortful swallow. Objective/Assessment/Plan Objective Treatment Techniques & Outcomes: Education:?Reviewed results of MBSS with focus on frequency and volume of aspiration with thin liquids vs thickened liquids. Reviewed pros/cons of thickened liquids including reduced aspiration risk, differences of sensation of aspiration, risk for dehydration. Patient verbalizes understanding of increased risk of pulmonary complications with thin liquids and mildly thick liquids being safest recommendation for PO intake at this time, chooses to continue only with thin liquids at this time. Reviewed importance and rationale for risk management strategies with particular focus on oral care, positioning, and small sip size. GOALS Patient will tolerate safest/least restrictive diet of without s/sx aspiration. Patient/caregiver will be independent with aspiration precautions, diet modifications, and safe swallowing strategies. 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 See MBSS report for further details. He has been educated on current recommendations for safest PO intake but continues to prefer to drink thin liquids at this time. Further risk management strategies were highlighted this date (e.g., oral care). He also participated in HEP (effortful swallow, CTAR) for several days during this hospitalization as instructed and his feels this has made a difference, especially when employing effortful swallows during meals. Patient also with moderate to severe dysarthria and would benefit from further COMBINATION SAW OPERATOR evaluation and treatment for this. Likely to benefit from additional oral pharyngeal exercise to target impairments noted in MBSS. Plan Plan: Patient to discharge later this date to [facility] where he will receive further COMBINATION SAW OPERATOR services. Recommendations Recommendations: 1:1 SUPERVISION Diet Texture Recommendation:? IDDSI LEVEL SOLIDS 5-Minced & Moist Solids ? LIQUIDS 2-Mildly Thick Liquids or 1-Thin Liquids, per patient preference, given adequate education of risks vs benefits of each. Please see further details at?www.iddsi.org http://www.iddsi.org/ MEDICATIONS Crushed, as able with 4-Puree and 2-Mildly Thick Liquid wash Diet texture modification is per patient's preference; please adjust diet textures at patient's discretion & collaboration with care team. Do not alter medications (e.g., cut)? without advice from your MD or pharmacist. Risk Management Strategies:? Behavioral reflux precautions, including upright position during + 90 mins after meals. Small bites, approx [id number] Very small sips, approx 5mL / teaspoon Alternate solids/liquids as able Multiple swallows per bolus to encourage clearance of pharyngeal stasis/residue Control risk factors for aspiration pneumonia via (a) thorough oral hygiene & (b) maintaining physical mobility as tolerated ORAL HYGIENE BID and BEFORE/AFTER PO INTAKE Total Time Spent: 15 m Coding Diagnoses CPT Codes ORAL FUNCTION THERAPY - 80245 ([id number])
--- NOTE | 2022-06-27 15:03 | PT.INTREAT ---
Date of service: 06/27/22 Time of Service: 14:10 PT Notes Visit Reasons: CVA, HTN Inpatient Physical Therapy Treatment Note [facility] Date: 06/27/22 PRECAUTIONS: Standard, Fall, Activity as tolerated. SUBJECTIVE: Patient is ready to transfer to [facility]. OBJECTIVE: PAIN: none reported BED MOBILITY/TRANSFERS Rolling L/R: Min assist with verbal cues Supine-sit: Mod assist with verbal and tactile cues? Sit-supine: not assessed? Sit-stand: CGA ? Stand-sit: CGA with verbal cue to reach back for the chair ? Bed-Chair: min assist with verbal cues? Chair-bed: min assist with verbal cues Chair to Car: min assist with verbal and tactile cues, help repositioning right leg, guarded head from car roof. GAIT Assistive Device: chetan walker Weight bearing: full Assist: cga-min with occasional help advancing right leg Distance: 10 feet ASSESSMENT: Patient comfortably seated in passenger seat of personal vehicle at the end of treatment. PLAN: transfer to [facility] for further rehab. TREATMENT CODE/TIME: 77304 Ther Act 20 minutes beginning at 1410.
--- NOTE | 2022-06-27 15:58 | PDOC.CMDIS ---
Date of service: 06/27/22 Time of Service: 15:58 LACE Index Scoring Tool Questions: Length of Stay (in days): 4 - 6 Was the patient admitted via the E.D.?: Yes Comorbidities: Cerebrovascular Disease and Diabetes w/o Complication E.D. Visits: 1 Answers: Total Score: 10 Risk of Readmission: High Risk Care Management Discharge Plan Reason for Hospitalization: CVA, HTN Discharge Plan: Bennett transferred to [facility] for acute rehab. His s/o drove him via private vehicle. He will follow up with his PCP and discharge plan of care. He was happy to be going to [facility]. Patient/Family Education Needs: Review discharge instructions and limitations, discussion of self care needs including ask me three. Services Needed at Discharge: Detention Facility (Acute rehab, [facility])
--- NOTE | 2022-06-27 17:09 | PT.INTREAT ---
Date of service: 06/27/22 Time of Service: 10:20 PT Notes Visit Reasons: CVA, HTN Inpatient Physical Therapy Treatment Note [facility] Date: 06/27/2022 PRECAUTIONS: Fall. Standard. Activity as tolerated. SUBJECTIVE: Patient needing to use bathroom for bowel movement. Tired today. Agreed to using commode. Per Nurse Manjula, patient has low potassium and may need to be replenished. OBJECTIVE:? PAIN: none reported ? BED MOBILITY/TRANSFERS? Sit-stand: minimal assist of 2 with hemiwalker ? Stand-sit: minimal assist of 2 with hemiwalker ? Bed-toilet seat: minimal assist of 2 ? GAIT? Assistive Device: hemiwalker? Weight bearing: FWB Assist: minimal ssist of 2? Distance:? 3-4 steps ? Deviation: Reduced swing through, reduced step height, noticeable foot drop right side, pronounced lean to the left, needed occasional assistance to R foot for safe limb advancement? ASSESSMENT:? Hypokalemia impacted patient's performance today. Continues to require CVA rehab to optimize functional mobility outcomes. Pending transfer to acute stroke rehab, awaiting pre auth from insurer. PLAN: Acute stroke rehab pending insurance pre-authorization. TREATMENT CODE/TIME: 82168 x 18 minutes beginning at 10:20 AM.
--- NOTE | 2022-06-30 08:51 | NUR.NOTE ---
Nursing Note: Accessed patient chart to determine how many EKG orders were in the chart from the ED. There was an outstanding EKG in ordered status. There are no EKG's in the [facility] system that are outstanding. EKG order was deleted.
--- NOTE | 2022-06-30 21:20 | PT.INDS ---
Date of service: 06/27/22 PT Notes Visit Reasons: CVA, HTN Physical Therapy Inpatient Discharge Summary Date: 06/27/2022 Dates of Service: 06/22/2022 through 06/27/2022 This is a clinical summary of care provided for the duration of dates listed above. No charge was made in the completion of this documentation. Referring Doctor:? Tony Caldwell MD PT Orders: PT CONSULT: Eval for assistive device Precautions: Fall. Standard. Activity as tolerated. Patient Profile/Admitting Diagnosis:Deion Guajardo is a 72-year-old male patient who presented to the ED on 06/21/2022 due to R-sided weakness,? slurring of speech,? difficulty walking and worsening fatigue as well as daytime sleepiness.? Patient is admitted for management of acute L MCA CVA,? HTN,? and hyperlipidemia. PMHX: All Active Problems?(Updated 06/22/22 @ 05:34 by Tony Caldwell) Hyperlipidemia (Chronic) Right sided weakness (Acute) Elevated TSH (Acute) Daytime sleepiness (Acute) Low back pain (Chronic) Diarrhea (Acute) Urinary frequency (Acute) Fatigue (Chronic) Hypertension (Chronic) Numbness of left foot (Acute) Medical History? CVA (cerebral vascular accident) 2009 Social History/Home Situation: Lives with in a private home.? Independent with all aspects of ADLs prior to surgery. Equipment Owned/DME: None Subjective: NT. See most recent CHAR HOUSE SUPERVISOR notes. Objective: General Observation: NT. See most recent CHAR HOUSE SUPERVISOR notes. Mental Status: NT. See most recent CHAR HOUSE SUPERVISOR notes. Pain: NT. See most recent CHAR HOUSE SUPERVISOR notes. Vital Signs:NT. See most recent CHAR HOUSE SUPERVISOR notes. ROM: Right Upper Extremity: ? Shoulder Flexion unable. Shoulder abduction unable. Elbow flexion unable. Wrist flexion unable. Functional opening and closing of hand unable. Left Upper Extremity:? Shoulder Flexion WFL. Shoulder abduction WFL. Elbow flexion WFL. Wrist flexion WFL. Functional opening and closing of hand WFL. Right Lower Extremity: Hip flexion. Hip abduction unable. Knee flexion unable. Ankle dorsiflexion unable. Ankle plantarflexion unable. Left Lower Extremity: Hip flexion WFL. Hip abduction WFL. Knee flexion WFL. Ankle dorsiflexion WFL. Ankle plantarflexion WFL. Strength: Right Upper Extremity: Shoulder flexors 0/5. Shoulder abductors 0/5. Elbow flexors 0/5. Elbow extensors /5. Immigration Consultant absent Left Upper Extremity: Shoulder flexors 5/5. Shoulder abductors 5/5. Elbow flexors 5/5. Elbow extensors 5/5. Immigration Consultant strong. Right Lower Extremity: Hip flexors 1/5. Hip abductors 1/5. Knee flexors 1/5. Knee extensors 1/5. Ankle dorsiflexors 1/5. Ankle plantarflexors 1/5. Left Lower Extremity: Hip flexors 5/5. Hi1p abductors 5/5. Knee flexors 55/5. Knee extensors /5. Ankle dorsiflexors 5/5. Ankle plantarflexors 5/5. ? Bed Mobility/Transfers: Supine to sit minimal assist of 2 Sit to supine minimal assist of 2 Sit to stand minimal assist of 2 Stand to sit minimal assist of 2 Bed to reclining chair minimal assist of 2 Gait: Instructed patient with level surface ambulation of up to 10 feet requiring minimal assist of 2 using hemiwalker on the L.? Maximal verbal cueing to side step, pivot, weight shift, and back up with the R LE,? L LE sliding back along.? Minimal assist to R LE to facilitate limb advancement due to R foot drag. R UE support provided for transfer.? Trunk lean to R and forward.? Balance: Static Sitting: Good Dynamic Sitting: Fair Static Standing: Poor Dynamic Standing: Poor NEURO: Tone: hypotonic in R UE/LE,? R UE>>R LE Trunk lean to R while walking Flaccid paralysis in R UE Able to discriminate items on his R side:? hooks L leg using R foot from behind without difficulty;? able to clasp L hand with the R without difficulty ASSESSMENT: R-sided UE hemiplegia and LE hemiparesis leading to severe impairment in functional mobility limiting safety of bed mobility,? transfer, and ambulation tasks.? No sensory deficits as to light touch and presure in R UE/LE.? Some numbness reported in the ipsilateral side of face.? Needs hemiwalker on the L side.? Requires assist of 2 and maximal cueing for safety.? Patient presents with clinical signs and symptoms consistent with current/admitting diagnoses that have resulted to mobility limitations, gait instability, generalized weakness, and overall ADL decline as demonstrated by the following impairment level findings: 1.? Decreased strength to R UE/LE major muscle groups 2.? Impaired sitting/standing balance 3.? Impaired activity tolerance 4.? Limitation of joint range of motion in R UE/LE joints 5.? Flaccid paralysis in R UE 6.? Hypotonic R UE/LE 7.? Impaired postural control Impairments are contributing to the following functional limitations: 1.? Decline in bed mobility skills 2.? Decline in transfer skills 3.? Difficulty with ambulation without assistive device and physical assistance 4.? Increased completion time for mobility ADL performance 5.? Increased risk for falls 6.? Difficulty with managing steps alone safely Goals: Goals X1 week 1. Supine-Sit independent NOT MET 2. Sit-Supine independent NOT MET 3. Sit-Stand independent NOT MET 4. Stand-Sit independent with hemiwalker NOT MET 5. Bed-Chair independent with hemiwalker NOT MET 6. Chair-Bed independent with hemiwalker NOT MET 7. Independent gait on level surface with use of hemiwalker for at least 300 feet without report of pain nor dyspnea NOT MET 8. Independent stair negotiation while holding onto L rail for at least 5 steps without report of pain nor dyspnea NOT MET 9. Independent with home exercise program NOT MET 10. Fair static and dynamic standing balance/tolerance NOT MET PLAN OF CARE/TREATMENT PLAN: 1-2x/day, 7 days/week x 1 week. Plan of care has been reviewed with the CHAR HOUSE SUPERVISOR providing the service under Physical Therapy direction. Initiate passive R UE/LE PNF patterns in supine. Perform seated/supine bilateral UE activities to increase R shoulder/elbow/wrist ROM. Bridging activity x 5 or as tolerated,? support R LE as needed. Work on trunk stabilization exercises in sitting/standing. Increase static standing tolerance to 5 minutes while holding onto hemiwalker on the L. Wheelchair follow for short distance ambulation with assist of 2. Train with bed mobility and transfers using AD. DISCHARGE RECOMMENDATIONS: [] ? Home with no services [] [] ? Home with services [specify] [] ? Home with outpatient PT [] [] ? SNF for continued rehabilitation [] [] ? Hot Press Operator Care [] [] ? SNF versus LTC based on ability to participate and progress [] [X] Acute stroke rehab facility to maximize functional mobility outcomes,? increase strength, and improve balance to optimize spontaneous neurologic recovery TREATMENT CODE/TIME: NC Thank you for the opportunity to participate in the care of this patient. Yissel Rolon PT, DPT, CLT [facility] [place], [place]
== END 2022-06-27 14:20 | disposition skilled nursing facility (03) | DRG 65 ==
LOC: ER 06-22 01:12 → MS 06-22 02:05
PROVIDERS: Family Medicine; Admitting Provider Family Medicine; Emergency Provider Emergency Medicine; PCP Nurse Practitioner Family; Visit Provider Family Medicine
DX: I63.512 Cerebral infarction due to unspecified occlusion or stenosis of left middle cerebral artery (principal); G81.91 Hemiplegia, unspecified affecting right dominant side; I10 Essential (primary) hypertension; R53.1 Weakness; E78.5 Hyperlipidemia, unspecified; R13.10 Dysphagia, unspecified; R47.1 Dysarthria and anarthria; Z86.73 Personal history of transient ischemic attack (TIA), and cerebral infarction without residual deficits; R29.810 Facial weakness; R29.709 NIHSS score 9; E11.9 Type 2 diabetes mellitus without complications; E66.9 Obesity, unspecified; Z68.29 Body mass index [BMI] 29.0-29.9, adult; I65.22 Occlusion and stenosis of left carotid artery
CPT/HCPCS: 36415; 70496; 70498; 80048; 80053; 80061; 80307; 85027; 87635; 92526; 92610; 92611; 93005; 97112; 97116; 97140; 97162; 97167; 97530; 97535; 99223; 99285; 70551; 71045; 74221; 80320; 81003; 81015; 83036; 83735; 84439; 84443; 84484; 85025; 85610; 85730; 93010; 93306; 99232; 99233; 99239; J3490

== ENCOUNTER → 2022-08-09 12:25 | Outpatient (BNVA) | payer MEDICARE, SELFPAY | PROVIDERS: PCP Nurse Practitioner Family; Referring Provider Nurse Practitioner Family; Visit Provider Psychiatry & Neurology Neurology | DX: I69.351 Hemiplegia and hemiparesis following cerebral infarction affecting right dominant side (principal); I69.322 Dysarthria following cerebral infarction; I69.391 Dysphagia following cerebral infarction; Z79.82 Long term (current) use of aspirin; Z79.02 Long term (current) use of antithrombotics/antiplatelets | CPT/HCPCS: 99213 ==

== ENCOUNTER → 2023-07-19 03:17 | Outpatient (CLI) | payer MEDICARE, SELFPAY ==
--- NOTE | 2023-07-19 08:00 | DI.RAD_ITS ---
Exam(s) XR TOE RT GREAT EXAM: XR TOE RT GREAT CLINICAL HISTORY: r/o osteomyelitis, WOUND OF FOOT, [id number]. TECHNIQUE: 2D digital imaging was performed. COMPARISON: No exams were available for comparison FINDINGS: BONES: No acute fracture is present. No bony destructive lesion is seen. JOINTS: No dislocation present. SOFT TISSUE: Vascular calcifications. Swelling of great toe. No foreign body or abnormal gas collec tion. IMPRESSION: Soft tissue swelling. No plain film evidence of osteomyelitis.. DATA REPOSITORY: RADIATION DOSE DELIVERED:
== END ==
PROVIDERS: PCP Nurse Practitioner Family; Visit Provider Nurse Practitioner Family
DX: S91.301A Unspecified open wound, right foot, initial encounter (principal); X58.XXXA Exposure to other specified factors, initial encounter
CPT/HCPCS: 73660

== ENCOUNTER → 2023-08-04 14:07 | Outpatient (BNVA) | payer MEDICARE, SELFPAY | PROVIDERS: PCP Nurse Practitioner Family; Referring Provider Nurse Practitioner Family; Visit Provider Physical Therapy Assistant | DX: S91.101A Unspecified open wound of right great toe without damage to nail, initial encounter (principal); X58.XXXA Exposure to other specified factors, initial encounter; E11.69 Type 2 diabetes mellitus with other specified complication; E66.9 Obesity, unspecified | CPT/HCPCS: 99213 ==

== ENCOUNTER → 2023-08-18 12:48 | Outpatient (BNVA) | payer MEDICARE, SELFPAY | PROVIDERS: PCP Nurse Practitioner Family; Referring Provider Nurse Practitioner Family; Visit Provider Physical Therapy Assistant | DX: S91.301D Unspecified open wound, right foot, subsequent encounter (principal); X58.XXXD Exposure to other specified factors, subsequent encounter; E11.9 Type 2 diabetes mellitus without complications | CPT/HCPCS: 99214 ==